=== PATIENT | female | born 1995 | race African-American/Black ===

== ENCOUNTER 2018-11-24 14:30 | Emergency (ER) | payer OTHER ==
[2018-11-24 14:34] VITALS: RESP 16
[2018-11-24] MEDS ORDERED: ONDANSETRON 4 MG/2 ML VIAL IVP STA (14:46)
[2018-11-24] MEDS ORDERED: SODIUM CHLORIDE 0.9% 2,000 ML IV STA (14:46)
[2018-11-24] MEDS ORDERED: MORPHINE SULFATE 2 MG/ML SYRINGE IVP STA (14:46)
[2018-11-24] MEDS ORDERED: ACETAMINOPHEN IV (For NPO) 1,000 MG in EMPTY BAG 1 BAG IVPB ONE (15:00)
--- NOTE | 2018-11-24 15:01 | ED ---
Abdominal Pain HPI - General Chief Complaint: Abdominal Pain Stated Complaint: abd pain Time Seen by Provider: 11/24/18 14:31 Source: patient, RN notes reviewed Mode of arrival: EMS Limitations: no limitations - History of Present Illness Initial Comments: 23-year-old female presents emergency Department with chief complaint of abdominal pain, fever, nausea vomiting. Patient states started yesterday and have worsened today. Patient does also have right flank pain. She has no current dysuria or urinary frequency. She states that she did notice some slight hematuria. Patient denies any history kidney stones. Denies chest pain or shortness breath no URI symptoms. Patient had no diarrhea no constipation. Denies any chance . - Related Data Home Medications Medication Instructions Recorded Confirmed Acetaminophen Tab [Tylenol] 1,000 mg PO BID 11/24/18 11/24/18 Previous Rx's Medication Instructions Recorded Ciprofloxacin HCl [Cipro] 500 mg PO Q12HR #20 tablet 11/24/18 Ondansetron Odt [Zofran Odt] 4 mg PO Q8HR PRN #10 tab 11/24/18 Allergies Allergy/AdvReac Type Severity Reaction Status Date / Time No Known Allergies Allergy Verified 11/24/18 14:52 Review of Systems ROS Statement: Those systems with pertinent positive or pertinent negative responses have been documented in the HPI. ROS Other: All systems not noted in ROS Statement are negative. Past Medical History Past Medical History: No Reported History History of Any Multi-Drug Resistant Organisms: None Reported Past Surgical History: No Surgical Hx Reported Past Psychological History: No Psychological Hx Reported Smoking Status: Current every day smoker Past Alcohol Use History: None Reported Past Drug Use History: Marijuana General Exam Limitations: no limitations General appearance: alert, in no apparent distress Head exam: Present: atraumatic, normocephalic, normal inspection Eye exam: Present: normal appearance, PERRL, EOMI. Absent: scleral icterus, conjunctival injection, periorbital swelling Respiratory exam: Present: normal lung sounds bilaterally. Absent: respiratory distress, wheezes, rales, rhonchi, stridor Cardiovascular Exam: Present: regular rate, normal rhythm, normal heart sounds. Absent: systolic murmur, diastolic murmur, rubs, gallop, clicks GI/Abdominal exam: Present: soft, tenderness (Moderate right-sided right flank) , normal bowel sounds. Absent: distended, guarding, rebound, rigid Back exam: Present: CVA tenderness (R). Absent: CVA tenderness (L) Skin exam: Present: warm, dry, intact, normal color. Absent: rash Course Vital Signs 11/24/18 14:31 Temperature 101.8 F H Pulse Rate 100 Respiratory 16 Rate Blood Pressure 117/71 O2 Sat by Pulse 100 Oximetry Medical Decision Making - Medical Decision Making 23-year-old female presents emergency Department chief complaint right flank pain, right abdominal pain. Patient did have social nausea vomiting. CT, lab work are obtained. Patient's found to have pyelonephritis. Patient is tolerating oral intake at this time. Patient will be given Rocephin IV and discharged on antibiotics. Return parameters were discussed. - Lab Data Result diagrams: 11/24/18 14:56 11/24/18 14:56 Lab Results 11/24/18 11/24/18 11/24/18 Range/Units 14:56 14:56 14:56 WBC 12.2 H (3.8-10.6) k/uL RBC 4.28 (3.80-5.40) m/uL Hgb 11.4 (11.4-16.0) gm/dL Hct 37.0 (34.0-46.0) % MCV 86.5 (80.0-100.0) fL MCH 26.6 (25.0-35.0) pg MCHC 30.7 L (31.0-37.0) g/dL RDW 14.2 (11.5-15.5) % Plt Count 149 L (150-450) k/uL Neutrophils % 88 % Lymphocytes % 6 % Monocytes % 4 % Eosinophils % 0 % Basophils % 0 % Neutrophils # 10.8 H (1.3-7.7) k/uL Lymphocytes # 0.7 L (1.0-4.8) k/uL Monocytes # 0.5 (0-1.0) k/uL Eosinophils # 0.1 (0-0.7) k/uL Basophils # 0.0 (0-0.2) k/uL Sodium 135 L (137-145) mmol/L Potassium 3.9 (3.5-5.1) mmol/L Chloride 104 (98-107) mmol/L Carbon Dioxide 20 L (22-30) mmol/L Anion Gap 11 mmol/L BUN 7 (7-17) mg/dL Creatinine 0.72 (0.52-1.04) mg/dL Est GFR (CKD-EPI)AfAm >90 (>60 ml/min/1.73 sqM) Est GFR (CKD-EPI)NonAf >90 (>60 ml/min/1.73 sqM) Glucose 100 H (74-99) mg/dL Plasma Lactic Acid Rommel 1.0 (0.7-2.0) mmol/L Calcium 8.7 (8.4-10.2) mg/dL Total Bilirubin 1.6 H (0.2-1.3) mg/dL AST 15 (14-36) U/L ALT 20 (9-52) U/L Alkaline Phosphatase 62 (38-126) U/L Total Protein 6.6 (6.3-8.2) g/dL Albumin 3.7 (3.5-5.0) g/dL Amylase 47 (30-110) U/L Lipase 28 (23-300) U/L Urine Color Urine Appearance (Clear) Urine pH (5.0-8.0) Ur Specific [place] (1.001-1.035) Urine Protein (Negative) Urine Glucose (UA) (Negative) Urine Ketones (Negative) Urine Blood (Negative) Urine Nitrite (Negative) Urine Bilirubin (Negative) Urine Urobilinogen (<2.0) mg/dL Ur Leukocyte Esterase (Negative) Urine RBC (0-5) /hpf Urine WBC (0-5) /hpf Ur Squamous Epith Cells (0-4) /hpf Urine Mucus (None) /hpf Urine HCG, Qual (Not Detectd) 11/24/18 11/24/18 Range/Units 14:56 14:56 WBC (3.8-10.6) k/uL RBC (3.80-5.40) m/uL Hgb (11.4-16.0) gm/dL Hct (34.0-46.0) % MCV (80.0-100.0) fL MCH (25.0-35.0) pg MCHC (31.0-37.0) g/dL RDW (11.5-15.5) % Plt Count (150-450) k/uL Neutrophils % % Lymphocytes % % Monocytes % % Eosinophils % % Basophils % % Neutrophils # (1.3-7.7) k/uL Lymphocytes # (1.0-4.8) k/uL Monocytes # (0-1.0) k/uL Eosinophils # (0-0.7) k/uL Basophils # (0-0.2) k/uL Sodium (137-145) mmol/L Potassium (3.5-5.1) mmol/L Chloride (98-107) mmol/L Carbon Dioxide (22-30) mmol/L Anion Gap mmol/L BUN (7-17) mg/dL Creatinine (0.52-1.04) mg/dL Est GFR (CKD-EPI)AfAm (>60 ml/min/1.73 sqM) Est GFR (CKD-EPI)NonAf (>60 ml/min/1.73 sqM) Glucose (74-99) mg/dL Plasma Lactic Acid Rommel (0.7-2.0) mmol/L Calcium (8.4-10.2) mg/dL Total Bilirubin (0.2-1.3) mg/dL AST (14-36) U/L ALT (9-52) U/L Alkaline Phosphatase (38-126) U/L Total Protein (6.3-8.2) g/dL Albumin (3.5-5.0) g/dL Amylase (30-110) U/L Lipase (23-300) U/L Urine Color Yellow Urine Appearance Cloudy H (Clear) Urine pH 6.0 (5.0-8.0) Ur Specific [place] 1.012 (1.001-1.035) Urine Protein 1+ H (Negative) Urine Glucose (UA) Negative (Negative) Urine Ketones 4+ H (Negative) Urine Blood Moderate H (Negative) Urine Nitrite Negative (Negative) Urine Bilirubin Negative (Negative) Urine Urobilinogen <2.0 (<2.0) mg/dL Ur Leukocyte Esterase Large H (Negative) Urine RBC 48 H (0-5) /hpf Urine WBC 69 H (0-5) /hpf Ur Squamous Epith Cells 6 H (0-4) /hpf Urine Mucus Few H (None) /hpf Urine HCG, Qual Detected (Not Detectd) Disposition Clinical Impression: Pyelonephritis Disposition: HOME SELF-CARE Condition: Stable Instructions: Kidney Infection (ED) Additional Instructions: Please return to the Emergency Department if symptoms worsen or any other concerns. Prescriptions: Ciprofloxacin HCl [Cipro] 500 mg PO Q12HR #20 tablet Ondansetron Odt [Zofran Odt] 4 mg PO Q8HR PRN #10 tab PRN Reason: Nausea Is patient prescribed a controlled substance at d/c from ED?: No Referrals: None,Stated [Primary Care Provider] - 1-2 days Time of Disposition: 16:16
[2018-11-24 15:28] LABS: ALT 20 U/L (9-52); AST 15 U/L (14-36); Albumin 3.7 g/dL (3.5-5.0); Alkaline Phosphatase 62 U/L (38-126); Amylase 47 U/L (30-110); Anion Gap 11 mmol/L; Blood Urea Nitrogen 7 mg/dL (7-17); Calcium 8.7 mg/dL (8.4-10.2); Carbon Dioxide 20 mmol/L (22-30); Chloride 104 mmol/L (98-107); Glucose 100 mg/dL (74-99); Lipase 28 U/L (23-300); Potassium 3.9 mmol/L (3.5-5.1); Sodium 135 mmol/L (137-145); Total Bilirubin 1.6 mg/dL (0.2-1.3); Total Protein 6.6 g/dL (6.3-8.2)
[2018-11-24 15:38] LABS: Appearance,Urine Cloudy (Clear); Bilirubin,Urine Negative (Negative); Blood,Urine Moderate (Negative); Color,Urine Yellow; Glucose,Urine (UA) Negative (Negative); Ketones,Urine 4+ (Negative); Leukocyte Esterase,Urine Large (Negative); Mucus,Urine Few /hpf; Nitrite,Urine Negative (Negative); Protein,Urine 1+ (Negative); RBC,Urine 48 /hpf (0-5); Specific Gravity,Urine 1.012 (1.001-1.035); Squamous Epithelial Cell,Urine 6 /hpf (0-4); Urobilinogen,Urine <2.0 mg/dL (<2.0); WBC,Urine 69 /hpf (0-5)
[2018-11-24 15:39] LABS: Basophils % (A) 0 %; Eosinophils # (A) 0.1 k/uL (0-0.7); Eosinophils % (A) 0 %; HGB 11.4 gm/dL (11.4-16.0); Lymphocytes # (A) 0.7 k/uL (1.0-4.8); Lymphocytes % (A) 6 %; MCH 26.6 pg (25.0-35.0); MCHC 30.7 g/dL (31.0-37.0); MCV 86.5 fL (80.0-100.0); Mean Platelet Volume 7.8; Monocytes # (A) 0.5 k/uL (0-1.0); Monocytes % (A) 4 %; Neutrophils # (A) 10.8 k/uL (1.3-7.7); Neutrophils % (A) 88 %; Platelet Count 149 k/uL (150-450); RBC 4.28 m/uL (3.80-5.40); RDW 14.2 % (11.5-15.5); WBC 12.2 k/uL (3.8-10.6)
--- NOTE | 2018-11-24 16:06 | CT ---
EXAMINATION TYPE: CT abdomen pelvis w con DATE OF EXAM: 11/24/2018 COMPARISON: NONE HISTORY: 23-year-old female Right lower abdomen and back pain x few days. TECHNIQUE: Contiguous axial scanning of the abdomen and pelvis following administration of 100 ml Iso amelia 300 IV contrast. Delayed images through the kidneys and coronal/sagittal reconstructions perform ed. CT DLP: 458.8 mGycm Automated exposure control for dose reduction was used. FINDINGS: Heart normal size without pericardial effusion. Lung bases clear without pleural effusion. No focal liver lesion. Portal venous system is patent. No biliary ductal dilatation. Gallbladder, adrenal glands, left kidney, spleen, and pancreas appear within normal limits. There are striated nephrograms with patchy areas of hypoenhancement throughout the right kidney and m ild right-sided pelvocaliectasis. No dilated small bowel, free fluid, or free air. Normal caliber appendix is identified. Scattered mild stool wording. No pericolonic inflammatory change. No mesenteric or retroperitoneal lymphadenopathy. Very heterogeneous enhancement of the uterus with slightly irregular contour to the right side of the endometrium. There is a 2.0 cm dominant follicle or functional cyst on the right. Trace cul-de-sac f ree fluid likely physiologic. Some prominent stool within the rectum. No pelvic lymphadenopathy seen. Bones: No osseous destructive process. IMPRESSION: 1. CT FINDINGS OF RIGHT-SIDED PYELONEPHRITIS. 2. VERY HETEROGENEOUS ENHANCEMENT OF THE UTERUS AND SOME CONTOUR IRREGULARITY TO THE RIGHT SIDE OF TH E ENDOMETRIUM. FINDINGS ARE NONSPECIFIC AND MAY BE PHYSIOLOGIC. ADENOMYOSIS IS ALSO POSSIBLE. CORRELA TE FOR ANY CHRONIC SYMPTOMS IN THIS PATIENT.
[2018-11-24] MEDS ORDERED: cefTRIAXone 2,000 MG in SODIUM CHLORIDE 0.9% 100 ML IVPB STA (16:10)
[2018-11-24] MEDS ORDERED: MORPHINE SULFATE 2 MG/ML SYRINGE IVP ONE (16:14)
[2018-11-24] MEDS ORDERED: ACET/COD 300 MG/30 MG STARTER PACK 6 TAB BTL PO STA (16:16)
[2018-11-24 17:34] VITALS: BP 107/70; PULSE 104; TEMP 99
== END 2018-11-24 17:40 | disposition home or self-care (01) ==
LOC: EC 14:30
DX: N12 Tubulo-interstitial nephritis, not specified as acute or chronic (principal); F17.200 Nicotine dependence, unspecified, uncomplicated; Z79.891 Long term (current) use of opiate analgesic
CPT/HCPCS: 36415; 80053; 82150; 83605; 83690; 85025; 81001; 81025; 87040; 74177; 99285; 96365; 96367; 96375 ×2; 96376; 96361; J2405; J0696; J2270; J0131; Q9967; 87077; 87186

== ENCOUNTER 2018-11-26 17:16 | Emergency (ER) | payer OTHER ==
[2018-11-26 17:36] VITALS: TEMP 98.8
[2018-11-26 18:27] LABS: Appearance,Urine Cloudy (Clear); Bacteria,Urine Rare /hpf; Bilirubin,Urine Negative (Negative); Blood,Urine Trace (Negative); Color,Urine Yellow; Glucose,Urine (UA) Negative (Negative); Ketones,Urine 2+ (Negative); Leukocyte Esterase,Urine Large (Negative); Mucus,Urine Few /hpf; Nitrite,Urine Negative (Negative); PH, Urine 6.5 (5.0-8.0); Protein,Urine Trace (Negative); RBC,Urine 4 /hpf (0-5); Specific Gravity,Urine 1.012 (1.001-1.035); Squamous Epithelial Cell,Urine 17 /hpf (0-4); Urobilinogen,Urine <2.0 mg/dL (<2.0)
[2018-11-26] MEDS ORDERED: SODIUM CHLORIDE 0.9% 1,000 ML IV STA (19:30)
--- NOTE | 2018-11-26 19:32 | ED ---
General Adult HPI - General Chief complaint: Recheck/Abnormal Lab/Rx Stated complaint: back to have iv here on sat for kidney infection Time Seen by Provider: 11/26/18 19:13 Source: patient, RN notes reviewed Mode of arrival: ambulatory Limitations: no limitations - History of Present Illness Initial comments: Patient is a pleasant 23-year-old female presenting to the emergency department after being called by follow-up. Patient states she was in the emergency department 2 days ago and was called for concerns regarding what work. Patient states she was diagnosed with kidney infection. Patient had discomfort right CVA region. Patient states discomfort is improving is only mild at this time. Patient states she has some urinary frequency. No fevers. No dysuria. No abdominal pain. No history of chronic kidney problems or infections. - Related Data Home Medications Medication Instructions Recorded Confirmed Acetaminophen-Codeine 300-30mg 1 tab PO Q12HR 11/26/18 11/26/18 [Tylenol w/codeine #3] Previous Rx's Medication Instructions Recorded Ciprofloxacin HCl [Cipro] 500 mg PO Q12HR #20 tablet 11/24/18 Ondansetron Odt [Zofran Odt] 4 mg PO Q8HR PRN #10 tab 11/24/18 Allergies Allergy/AdvReac Type Severity Reaction Status Date / Time No Known Allergies Allergy Verified 11/26/18 20:12 Review of Systems ROS Statement: Those systems with pertinent positive or pertinent negative responses have been documented in the HPI. ROS Other: All systems not noted in ROS Statement are negative. Constitutional: Denies: fever, chills Eyes: Denies: eye pain ENT: Denies: ear pain Respiratory: Denies: cough, dyspnea Cardiovascular: Denies: chest pain Gastrointestinal: Reports: as per HPI. Denies: vomiting Genitourinary: Reports: frequency. Denies: dysuria Musculoskeletal: Denies: back pain Skin: Denies: rash Neurological: Denies: weakness Past Medical History Past Medical History: No Reported History Additional Past Medical History / Comment(s): Kidney infection History of Any Multi-Drug Resistant Organisms: None Reported Past Surgical History: No Surgical Hx Reported Past Psychological History: No Psychological Hx Reported Smoking Status: Current every day smoker Past Alcohol Use History: None Reported Past Drug Use History: Marijuana General Exam Limitations: no limitations General appearance: alert, in no apparent distress Head exam: Present: atraumatic Eye exam: Present: normal appearance, PERRL ENT exam: Present: normal oropharynx Neck exam: Present: normal inspection Respiratory exam: Present: normal lung sounds bilaterally Cardiovascular Exam: Present: regular rate, normal rhythm GI/Abdominal exam: Present: soft. Absent: distended, tenderness, guarding, pulsatile mass Extremities exam: Present: normal inspection. Absent: pedal edema, calf tenderness Back exam: Present: CVA tenderness (R) (Mild) Neurological exam: Present: alert Psychiatric exam: Present: normal affect, normal mood Skin exam: Present: normal color Course Vital Signs 11/26/18 17:31 Temperature 98.8 F Pulse Rate 111 H Respiratory 18 Rate Blood Pressure 102/69 O2 Sat by Pulse 99 Oximetry Medical Decision Making - Medical Decision Making Patient reevaluated and resting comfortably in bed. Concern for bacteremia with positive blood culture. Patient updated on results and plan. Case was discussed with practitioner Salvatore, covering for hospital call, who will admit for a dose of IV antibiotics and reevaluation in the morning. - Lab Data Result diagrams: 11/26/18 20:00 11/26/18 20:00 Lab Results 11/26/18 11/26/18 11/26/18 Range/Units 18:15 20:00 20:00 WBC 7.6 (3.8-10.6) k/uL RBC 4.56 (3.80-5.40) m/uL Hgb 12.3 (11.4-16.0) gm/dL Hct 38.4 (34.0-46.0) % MCV 84.2 (80.0-100.0) fL MCH 27.0 (25.0-35.0) pg MCHC 32.0 (31.0-37.0) g/dL RDW 14.3 (11.5-15.5) % Plt Count 143 L (150-450) k/uL Neutrophils % 66 % Lymphocytes % 21 % Monocytes % 8 % Eosinophils % 1 % Basophils % 1 % Neutrophils # 5.0 (1.3-7.7) k/uL Lymphocytes # 1.6 (1.0-4.8) k/uL Monocytes # 0.6 (0-1.0) k/uL Eosinophils # 0.1 (0-0.7) k/uL Basophils # 0.0 (0-0.2) k/uL Sodium 136 L (137-145) mmol/L Potassium 3.9 (3.5-5.1) mmol/L Chloride 100 (98-107) mmol/L Carbon Dioxide 23 (22-30) mmol/L Anion Gap 13 mmol/L BUN 7 (7-17) mg/dL Creatinine 0.63 (0.52-1.04) mg/dL Est GFR (CKD-EPI)AfAm >90 (>60 ml/min/1.73 sqM) Est GFR (CKD-EPI)NonAf >90 (>60 ml/min/1.73 sqM) Glucose 76 (74-99) mg/dL Plasma Lactic Acid Rommel (0.7-2.0) mmol/L Calcium 9.3 (8.4-10.2) mg/dL Total Bilirubin 0.5 (0.2-1.3) mg/dL AST 24 (14-36) U/L ALT 20 (9-52) U/L Alkaline Phosphatase 81 (38-126) U/L Total Protein 7.2 (6.3-8.2) g/dL Albumin 4.1 (3.5-5.0) g/dL Urine Color Yellow Urine Appearance Cloudy H (Clear) Urine pH 6.5 (5.0-8.0) Ur Specific [place] 1.012 (1.001-1.035) Urine Protein Trace H (Negative) Urine Glucose (UA) Negative (Negative) Urine Ketones 2+ H (Negative) Urine Blood Trace H (Negative) Urine Nitrite Negative (Negative) Urine Bilirubin Negative (Negative) Urine Urobilinogen <2.0 (<2.0) mg/dL Ur Leukocyte Esterase Large H (Negative) Urine RBC 4 (0-5) /hpf Urine WBC 23 H (0-5) /hpf Ur Squamous Epith Cells 17 H (0-4) /hpf Urine Bacteria Rare H (None) /hpf Urine Mucus Few H (None) /hpf 11/26/18 Range/Units 20:00 WBC (3.8-10.6) k/uL RBC (3.80-5.40) m/uL Hgb (11.4-16.0) gm/dL Hct (34.0-46.0) % MCV (80.0-100.0) fL MCH (25.0-35.0) pg MCHC (31.0-37.0) g/dL RDW (11.5-15.5) % Plt Count (150-450) k/uL Neutrophils % % Lymphocytes % % Monocytes % % Eosinophils % % Basophils % % Neutrophils # (1.3-7.7) k/uL Lymphocytes # (1.0-4.8) k/uL Monocytes # (0-1.0) k/uL Eosinophils # (0-0.7) k/uL Basophils # (0-0.2) k/uL Sodium (137-145) mmol/L Potassium (3.5-5.1) mmol/L Chloride (98-107) mmol/L Carbon Dioxide (22-30) mmol/L Anion Gap mmol/L BUN (7-17) mg/dL Creatinine (0.52-1.04) mg/dL Est GFR (CKD-EPI)AfAm (>60 ml/min/1.73 sqM) Est GFR (CKD-EPI)NonAf (>60 ml/min/1.73 sqM) Glucose (74-99) mg/dL Plasma Lactic Acid Rommel 0.8 (0.7-2.0) mmol/L Calcium (8.4-10.2) mg/dL Total Bilirubin (0.2-1.3) mg/dL AST (14-36) U/L ALT (9-52) U/L Alkaline Phosphatase (38-126) U/L Total Protein (6.3-8.2) g/dL Albumin (3.5-5.0) g/dL Urine Color Urine Appearance (Clear) Urine pH (5.0-8.0) Ur Specific [place] (1.001-1.035) Urine Protein (Negative) Urine Glucose (UA) (Negative) Urine Ketones (Negative) Urine Blood (Negative) Urine Nitrite (Negative) Urine Bilirubin (Negative) Urine Urobilinogen (<2.0) mg/dL Ur Leukocyte Esterase (Negative) Urine RBC (0-5) /hpf Urine WBC (0-5) /hpf Ur Squamous Epith Cells (0-4) /hpf Urine Bacteria (None) /hpf Urine Mucus (None) /hpf - Radiology Data Radiology results: image reviewed (Abdominal x-ray shows no acute process) Disposition Clinical Impression: Pyelonephritis, Bacteremia Disposition: ADMITTED IP TO THIS [facility] Condition: Serious Is patient prescribed a controlled substance at d/c from ED?: No Referrals: None,Stated [Primary Care Provider] - 1-2 days Decision Time: 21:03
[2018-11-26 20:21] LABS: Basophils % (A) 1 %; Eosinophils # (A) 0.1 k/uL (0-0.7); Eosinophils % (A) 1 %; HCT 38.4 % (34.0-46.0); HGB 12.3 gm/dL (11.4-16.0); Lymphocytes # (A) 1.6 k/uL (1.0-4.8); Lymphocytes % (A) 21 %; MCV 84.2 fL (80.0-100.0); Mean Platelet Volume 7.9; Monocytes # (A) 0.6 k/uL (0-1.0); Monocytes % (A) 8 %; Neutrophils % (A) 66 %; Platelet Count 143 k/uL (150-450); RBC 4.56 m/uL (3.80-5.40); RDW 14.3 % (11.5-15.5); WBC 7.6 k/uL (3.8-10.6)
[2018-11-26 20:32] LABS: ALT 20 U/L (9-52); AST 24 U/L (14-36); Albumin 4.1 g/dL (3.5-5.0); Alkaline Phosphatase 81 U/L (38-126); Anion Gap 13 mmol/L; Blood Urea Nitrogen 7 mg/dL (7-17); Calcium 9.3 mg/dL (8.4-10.2); Carbon Dioxide 23 mmol/L (22-30); Chloride 100 mmol/L (98-107); Glucose 76 mg/dL (74-99); Potassium 3.9 mmol/L (3.5-5.1); Sodium 136 mmol/L (137-145); Total Bilirubin 0.5 mg/dL (0.2-1.3); Total Protein 7.2 g/dL (6.3-8.2)
--- NOTE | 2018-11-26 20:41 | XR ---
EXAMINATION TYPE: XR KUB DATE OF EXAM: 11/26/2018 8:04 PM CLINICAL HISTORY: Abdominal pain. Kidney infection diagnosed 3 days ago. TECHNIQUE: Two Upright KUB images of the abdomen are obtained. COMPARISON: CT abdomen and pelvis from 2 days earlier. FINDINGS: Scattered gas is seen in non-distended stomach and small bowel loops. Gas and fecal materia l is seen in non-distended colon. There is no visceromegaly, pneumoperitoneum, or abnormal calcificat ion appreciated. The lung bases are clear and the osseous structures are intact. IMPRESSION: Overall nonobstructive bowel gas pattern redemonstrated.
[2018-11-26] MEDS ORDERED: NALOXONE 0.4 MG/ML 1 ML VIAL IV PRN (21:03)
[2018-11-26] MEDS ORDERED: SODIUM CHLORIDE 0.9% 1,000 ML IV SCH (21:15)
[2018-11-27 01:07] VITALS: BP 99/60; PULSE 84; RESP 16
== END 2018-11-27 01:38 | disposition other institution (70) ==
LOC: EC 17:16
DX: N12 Tubulo-interstitial nephritis, not specified as acute or chronic (principal); F17.200 Nicotine dependence, unspecified, uncomplicated; Z79.891 Long term (current) use of opiate analgesic; Z79.899 Other long term (current) drug therapy
CPT/HCPCS: 36415; 80053; 83605; 85025; 81001; 87040; 87086; 74018; 99284; 96365; 96361 ×2; J0696

== ENCOUNTER 2020-07-13 05:01 | Inpatient (IN) | payer OTHER ==
[2020-07-13] MEDS: LACTATED RINGERS 1,000 ML IV SCH ×2 (05:30→06:16)
[2020-07-13] MEDS ORDERED: OXYTOCIN 10 UNIT/ML 1 ML VIAL IM PRN (05:52)
[2020-07-13] MEDS ORDERED: TERBUTALINE 1 MG/ML VIAL SQ PRN (05:52)
[2020-07-13] MEDS ORDERED: LIDOCAINE 0.5% (PF) 5 MG/ML (50 ML SDV) SQ PRN (05:52)
[2020-07-13] MEDS ORDERED: CARBOPROST TROMETHAMINE 250 MCG/ML 1 ML AMP IM PRN (05:52)
[2020-07-13] MEDS ORDERED: METHYLERGONOVINE 0.2 MG/ML 1 ML AMP IM PRN (05:52)
[2020-07-13 06:09] LABS: Basophils % (A) 0 %; Eosinophils # (A) 0.1 k/uL (0-0.7); Eosinophils % (A) 2 %; HCT 33.8 % (34.0-46.0); HGB 10.5 gm/dL (11.4-16.0); Hypochromasia Slight; Lymphocytes % (A) 25 %; MCH 26.6 pg (25.0-35.0); MCHC 31.2 g/dL (31.0-37.0); MCV 85.3 fL (80.0-100.0); Mean Platelet Volume 8.3; Monocytes # (A) 0.5 k/uL (0-1.0); Monocytes % (A) 6 %; Neutrophils # (A) 5.2 k/uL (1.3-7.7); Neutrophils % (A) 64 %; Platelet Count 187 k/uL (150-450); RBC 3.96 m/uL (3.80-5.40); RDW 15.5 % (11.5-15.5); WBC 8.1 k/uL (3.8-10.6)
[2020-07-13] MEDS ORDERED: ROPIVACAINE 5MG/ML 20ML VIAL ONE (06:30)
[2020-07-13] MEDS ORDERED: fentaNYL (PF) 50 MCG/ML 5 ML AMP ONE (06:30)
[2020-07-13] MEDS ORDERED: SODIUM CHLORIDE 0.9% 100 ML BAG ONE (06:30)
[2020-07-13] MEDS ORDERED: AMPICILLIN 2,000 MG in SODIUM CHLORIDE 0.9% 100 ML IVPB STA (07:14)
--- NOTE | 2020-07-13 07:38 | P.HPOB ---
History of Present Illness H&P Date: 07/13/20 Chief Complaint: Labor 24-year-old presents at 30 weeks and 5 days in active labor. She is mariela every 2 minutes. heart tones 135 with moderate variability and reactive. Cervix is 5 cm dilated, 70% effaced, -2 station. She had care with Dr. Gomez [facility] but was brought here by EMS. Review of Systems All systems: negative Constitutional: Denies chills, Denies fever Eyes: denies blurred vision, denies pain Ears, nose, mouth and throat: Denies headache, Denies sore throat Cardiovascular: Denies chest pain, Denies shortness of breath Respiratory: Denies cough Gastrointestinal: Denies abdominal pain, Denies diarrhea, Denies nausea, Denies vomiting Genitourinary: Denies dysuria, Denies hematuria Musculoskeletal: Denies myalgias Integumentary: Denies pruritus, Denies rash Neurological: Denies numbness, Denies weakness Psychiatric: Denies anxiety, Denies depression Endocrine: Denies fatigue, Denies weight change Past Medical History Past Medical History: No Reported History Additional Past Medical History / Comment(s): Obstetric history: She has had 2 previous vaginal deliveries. This is her third . She had care with Dr. Gomez. I did attempt to get records but there is not much in way of labs or history and this record obtained from [facility]. She does have a history of a Kidney infection with this , treated with IV antibiotics. History of Any Multi-Drug Resistant Organisms: None Reported Past Surgical History: No Surgical Hx Reported Past Anesthesia/Blood Transfusion Reactions: No Reported Reaction Past Psychological History: No Psychological Hx Reported Smoking Status: Never smoker Past Alcohol Use History: None Reported Past Drug Use History: Marijuana - Past Family History Mother Family Medical History: Hypertension Father Family Medical History: Diabetes Mellitus, Hypertension Medications and Allergies Home Medications Medication Instructions Recorded Confirmed Type Pnv,Calcium 72/Iron/Folic Acid 1 tab PO DAILY 07/13/20 07/13/20 History [ Plus Tablet] Allergies Allergy/AdvReac Type Severity Reaction Status Date / Time No Known Allergies Allergy Verified 07/13/20 05:52 Exam Osteopathic Statement: *. No significant issues noted on an osteopathic structural exam other than those noted in the History and Physical/Consult. Vital Signs Temp Pulse Resp BP Pulse Ox 07/13/20 06:22 98.1 F 68 18 106/63 07/13/20 05:10 98.0 F 72 16 106/63 98 Intake and Output 07/12/20 07/13/20 07/13/20 22:59 06:59 14:59 Intake Total 1000 Balance 1000 Intake: IV 1000 Other: # Voids 1 Weight 59.874 kg Heart: Regular rate and rhythm Lungs: Clear to auscultation bilaterally Abdomen: Soft, nontender Extremities: Negative Homans sign Results Result Diagrams: 07/13/20 05:50 Abnormal Lab Results - Last 24 Hours (Table) 07/13/20 Range/Units 05:50 Hgb 10.5 L (11.4-16.0) gm/dL Hct 33.8 L (34.0-46.0) % Assessment and Plan (1) Normal labor Current Visit: Yes Status: Acute Code(s): O80 - ENCOUNTER FOR FULL-TERM UNCOMPLICATED DELIVERY; Z37.9 - OUTCOME OF DELIVERY, UNSPECIFIED SNOMED Code(s): 61814561 Plan: 1. Expectant management 2. Epidural for pain control 3. Anticipate normal vaginal delivery
[2020-07-13 07:45] LABS: Appearance,Urine Cloudy (Clear); Bacteria,Urine Rare /hpf; Bilirubin,Urine Negative (Negative); Blood,Urine Negative (Negative); Color,Urine Yellow; Glucose,Urine (UA) Negative (Negative); Ketones,Urine 1+ (Negative); Leukocyte Esterase,Urine Moderate (Negative); Mucus,Urine Many /hpf; Nitrite,Urine Negative (Negative); PH, Urine 6.5 (5.0-8.0); Protein,Urine Trace (Negative); RBC,Urine 3 /hpf (0-5); Specific Gravity,Urine 1.024 (1.001-1.035); Squamous Epithelial Cell,Urine 5 /hpf (0-4); WBC,Urine 13 /hpf (0-5)
[2020-07-13 07:56] LABS: Amphetamine Screen,Urine Not Detected (NotDetected); Barbiturate Screen,Urine Not Detected (NotDetected); Benzodiazepines Screen,Urine Not Detected (NotDetected); Cocaine Screen,Urine Not Detected (NotDetected); Methadone Screen, Urine Not Detected (NotDetected); Opiate Screen,Urine Not Detected (NotDetected); Oxycodone Screen, Urine Not Detected (NotDetected); Phencyclidine Screen,Urine Not Detected (NotDetected); Tricyclic Antidepressant,Urine Not Detected (NotDetected); Urn Cannabinoid Scrn Detected (NotDetected)
[2020-07-13] MEDS ORDERED: OXYTOCIN 30 UNITS/500 ML NS 30 UNIT in SALINE 1 500ML.BAG IV SCH (08:00)
[2020-07-13] MEDS ORDERED: LANOLIN CREAM 5 GM TUBE TOPICAL PRN (11:22)
[2020-07-13] MEDS ORDERED: diphenhydrAMINE 25 MG CAP PO PRN (11:22)
[2020-07-13] MEDS ORDERED: SIMETHICONE 80 MG CHEWABLE PO PRN (11:22)
[2020-07-13] MEDS ORDERED: HYDROCORTISONE 2.5% RECTAL CREAM 30 GM TUBE RECTAL PRN (11:22)
[2020-07-13] MEDS ORDERED: ZOLPIDEM 5 MG TAB PO PRN (11:22)
[2020-07-13] MEDS ORDERED: diphenhydrAMINE 50 MG/ML 1 ML VIAL IVP PRN ×2 (11:22)
[2020-07-13] MEDS ORDERED: diphenhydrAMINE 50 MG CAP PO PRN (11:22)
[2020-07-13] MEDS ORDERED: ACETAMINOPHEN TAB 325 MG TAB PO PRN (11:22)
[2020-07-13] MEDS ORDERED: BENZOCAINE/MENTHOL SPRAY 1 GM/SPRAY AEROSOL TOPICAL PRN (11:22)
[2020-07-13] MEDS ORDERED: AMPICILLIN 1,000 MG in SODIUM CHLORIDE 0.9% 50 ML IVPB SCH (11:30)
[2020-07-13] MEDS ORDERED: OXYTOCIN 20 UNITS/1000 ML NS 1,000 ML IV SCH (11:30)
[2020-07-13] MEDS: IBUPROFEN 600 MG TAB PO PRN ×2 (16:18→23:32)
--- NOTE | 2020-07-13 18:24 | P.PROBDLV ---
Vaginal Delivery Note - . Vaginal Delivery Note: Normal spontaneous vaginal delivery viable male infant Apgars 9 and 9 delivery time is 1028 hrs. Please see dictated H&P for intimate details of this patient's admission. Brief summary this is a 24-year-old 3 para 2 female estimated gestational age 38-5/7 weeks by limited care who presented by EMS this morning with complaints of contractions. Patient was admitted and evaluated by Dr. Bullock and felt to be in active labor. Patient apparently is only had [address] Gomez and we do not have access to these records. On admission patient is 5 cm dilated and is given antibiotic prophylaxis for unknown group B strep status. She has artificial rupture membranes for clear fluid area and she does require some Pitocin augmentation of labor. Patient did get an epidural for pain control with good relief. Patient gets to complete she pushes approximately 2 or 3 times and pushes the head to the perineum. Posterior perineum is supported we have controlled delivery of the 's head over the intact perineum. Infant is straight occiput anterior presentation. Patient does have a nuchal cord and has I'm trying to reduce that she's pushes then spontaneously delivers a rest this infant's body. This is a vigorous viable male infant Apgars are 9 and 9 delivery time was 1028 hrs. After delivery of the infant the infant is late on the mother's abdomen. After the umbilical cord is done pulsating is doubly clamped and cut. The placenta is spontaneously delivered intact. Estimated blood loss from delivery is 100 mL. There are no lacerations and no repairs required. and mother are stable in delivery room. There are no complications.
[2020-07-13 19:21] LABS: Hepatitis B Surface Antigen Non-Reactive (Non-Reactive)
[2020-07-13] MEDS: SENNOSIDES-DOCUSATE SODIUM 1 EACH TAB PO SCH (19:48)
[2020-07-13 20:03] LABS: HIV 2 AB Non-Reactive (Non-Reactive); HIV AB P24 Non-Reactive (Non-Reactive); HIV P24 AG Non-Reactive (Non-Reactive)
[2020-07-14] MEDS: IBUPROFEN 600 MG TAB PO PRN ×2 (05:17→19:14)
[2020-07-14 06:11] LABS: Basophils % (A) 0 %; Eosinophils # (A) 0.1 k/uL (0-0.7); Eosinophils % (A) 1 %; HCT 29.9 % (34.0-46.0); HGB 9.2 gm/dL (11.4-16.0); Hypochromasia Slight; Lymphocytes # (A) 2.4 k/uL (1.0-4.8); Lymphocytes % (A) 30 %; MCH 26.4 pg (25.0-35.0); MCHC 30.8 g/dL (31.0-37.0); MCV 85.9 fL (80.0-100.0); Mean Platelet Volume 9.3; Monocytes # (A) 0.4 k/uL (0-1.0); Monocytes % (A) 5 %; Neutrophils # (A) 4.9 k/uL (1.3-7.7); Neutrophils % (A) 61 %; Platelet Count 153 k/uL (150-450); RBC 3.48 m/uL (3.80-5.40); RDW 15.6 % (11.5-15.5)
--- NOTE | 2020-07-14 06:31 | P.PNOBGVD ---
Subjective - Subjective Patient reports: Reports appetite normal, Reports voiding normally, Reports pain well controlled, Reports ambulating normally : doing well Objective - Latest Vital Signs Latest vital signs: Vital Signs Temp Pulse Resp BP Pulse Ox 07/14/20 00:00 98.0 F 70 16 101/65 07/13/20 20:00 97.8 F 68 16 101/56 07/13/20 16:00 98.4 F 77 18 100/62 98 07/13/20 12:36 98.2 F 67 17 100/70 07/13/20 12:05 63 18 106/53 07/13/20 11:35 98.2 F 64 17 102/67 07/13/20 11:20 71 17 108/72 07/13/20 11:05 78 17 104/57 07/13/20 10:49 84 17 107/59 07/13/20 10:34 97.3 F L 82 18 103/53 Intake and Output 07/13/20 07/13/20 07/14/20 14:59 22:59 06:59 Intake Total 2000 120 Output Total 150 Balance 1850 120 Intake: IV 2000 Oral 120 Output: Urine 150 Straight 150 Other: Voiding Method Toilet # Voids 1 1 2 - Exam Lungs: bilateral: normal Chest: Normal S1, Normal S2 Extremities: Present: normal Abdomen: Present: normal appearance, soft Uterus: Present: normal, firm - Labs Labs: Abnormal Lab Results - Last 24 Hours (Table) 07/13/20 07/13/20 07/14/20 Range/Units 06:30 07:45 05:51 RBC 3.48 L (3.80-5.40) m/uL Hgb 9.2 L (11.4-16.0) gm/dL Hct 29.9 L (34.0-46.0) % MCHC 30.8 L (31.0-37.0) g/dL RDW 15.6 H (11.5-15.5) % Glucose 65 L (74-99) mg/dL Urine Appearance Cloudy H (Clear) Urine Protein Trace H (Negative) Urine Ketones 1+ H (Negative) Ur Leukocyte Esterase Moderate H (Negative) Urine WBC 13 H (0-5) /hpf Ur Squamous Epith Cells 5 H (0-4) /hpf Urine Bacteria Rare H (None) /hpf Urine Mucus Many H (None) /hpf U Marijuana (THC) Screen Detected H (NotDetected) Assessment and Plan Assessment: day #1. Patient is resting without complaints. Vital signs are stable she is afebrile. She is having normal lochia. Secondary to unknown group B strep status her son needs to stay for 48 hours therefore patient plans on staying until tomorrow. Plan today is routine care. (1) Normal labor Current Visit: Yes Status: Acute Code(s): O80 - ENCOUNTER FOR FULL-TERM UNCOMPLICATED DELIVERY; Z37.9 - OUTCOME OF DELIVERY, UNSPECIFIED SNOMED Code(s): 28085979
[2020-07-14] MEDS ORDERED: diphenhydrAMINE 25 MG CAP PO PRN (08:36)
[2020-07-14] MEDS ORDERED: diphenhydrAMINE 50 MG/ML 1 ML VIAL IVP PRN ×2 (08:36)
[2020-07-14] MEDS: SENNOSIDES-DOCUSATE SODIUM 1 EACH TAB PO SCH ×2 (11:16→19:14)
[2020-07-14 23:59] VITALS: BP 112/66
--- NOTE | 2020-07-15 06:16 | P.PNOBGVD ---
Subjective - Subjective Patient reports: Reports appetite normal, Reports voiding normally, Reports pain well controlled, Reports ambulating normally : doing well Objective - Latest Vital Signs Latest vital signs: Vital Signs Temp Pulse Resp BP Pulse Ox 07/14/20 23:58 97.8 F 64 16 112/66 07/14/20 16:00 98.9 F 75 15 101/50 98 07/14/20 08:00 98 F 68 15 110/72 Intake and Output 07/14/20 07/14/20 07/15/20 14:59 22:59 06:59 Intake Total 200 Balance 200 Intake: Oral 200 - Exam Lungs: bilateral: normal Chest: Normal S1, Normal S2 Extremities: Present: normal Abdomen: Present: normal appearance, soft Uterus: Present: normal, firm Assessment and Plan Assessment: day #2. Patient is resting without complaints. Vital signs are stable and she is afebrile. Uterus is firm nontender she's having normal lochia. My impression is a normal course. Plan is to continue routine care and discharge home later this morning (1) Normal labor Current Visit: Yes Status: Acute Code(s): O80 - ENCOUNTER FOR FULL-TERM UNCOMPLICATED DELIVERY; Z37.9 - OUTCOME OF DELIVERY, UNSPECIFIED SNOMED Code(s): 53462385
--- NOTE | 2020-07-15 06:20 | P.DS ---
Providers Date of admission: 07/13/20 05:21 Expected date of discharge: 07/15/20 Attending physician: Jessica Bullock Primary care physician: Stated None - Discharge Diagnosis(es) (1) Normal labor Current Visit: Yes Status: Acute Hospital Course: Please see dictated H&P for intimate details of this patient's admission. Brief summary this is a 24-year-old 3 para [address] Gomez's admitted to labor and delivery by EMS in active labor. Patient was on have a vaginal delivery viable male . Please see dictated delivery note. day #2 patient's felt be stable for discharge home follow up with Dr. Gomez in 6 weeks. Procedures: Normal spontaneous vaginal delivery Patient Condition at Discharge: Good Plan - Discharge Summary New Discharge Prescriptions: New Ibuprofen [Motrin] 600 mg PO Q6HR PRN #30 tab PRN Reason: Mild Pain Or Fever >= 100.5 No Action Pnv,Calcium 72/Iron/Folic Acid [ Plus Tablet] 1 tab PO DAILY Discharge Medication List Pnv,Calcium 72/Iron/Folic Acid [ Plus Tablet] 1 tab PO DAILY 07/13/20 [History] Ibuprofen [Motrin] 600 mg PO Q6HR PRN #30 tab 07/15/20 [Rx] Follow up Appointment(s)/Referral(s): Handy Gomez DO [REFERRING] - 6 Weeks Patient Instructions/Handouts: Vaginal Delivery (DC) Activity/Diet/Wound Care/Special Instructions: No intercourse or anything per vagina for 6 weeks. Please call your physician for any excessive vaginal bleeding, abdominal pain, fever, chills. Discharge Disposition: HOME SELF-CARE
[2020-07-15 08:34] LABS: C. trachomatis,PCR Negative (Neg,Equiv); Chlamydia trachomatis Source Urine; N. gonorrhoeae,PCR Negative (Neg,Equiv); Neisseria Source Urine
[2020-07-15] MEDS: IBUPROFEN 600 MG TAB PO PRN (08:35)
[2020-07-15 10:42] VITALS: PULSE 84; RESP 18; TEMP 98.2
== END 2020-07-15 16:00 | disposition home or self-care (01) | DRG 807 ==
LOC: FBPOP 05:01 → 4FBP 05:21
PROVIDERS: ADMIT Obstetrics & Gynecology; ATTEND Obstetrics & Gynecology
PROC: 10E0XZZ Delivery of Products of Conception, External Approach (ICD-10-PCS; principal; 2020-07-13)
PROC: 3E0R3NZ Introduction of Analgesics, Hypnotics, Sedatives into Spinal Canal, Percutaneous Approach (ICD-10-PCS; principal; 2020-07-13)
PROC: 10907ZC Drainage of Amniotic Fluid, Therapeutic from Products of Conception, Via Natural or Artificial Opening (ICD-10-PCS; principal; 2020-07-13)
PROC: 00HU33Z Insertion of Infusion Device into Spinal Canal, Percutaneous Approach (ICD-10-PCS; principal; 2020-07-13)
PROC: 3E033VJ Introduction of Other Hormone into Peripheral Vein, Percutaneous Approach (ICD-10-PCS; principal; 2020-07-13)
DX: O69.81X0 Labor and delivery complicated by cord around neck, without compression, not applicable or unspecified (principal); Z37.0 Single live birth; Z3A.38 38 weeks gestation of pregnancy; Z82.49 Family history of ischemic heart disease and other diseases of the circulatory system; Z83.3 Family history of diabetes mellitus; Z87.440 Personal history of urinary (tract) infections
CPT/HCPCS: 80306; 81001; 82947; 85025; 86762; 86780; 86850; 86900; 86901; 87340; 87390; 87491; 87591; 88307

== ENCOUNTER 2022-03-28 16:32 | Emergency (ER) | payer OTHER ==
[2022-03-28 17:18] VITALS: BP 109/77; PULSE 107; RESP 18; TEMP 99.5
[2022-03-28 17:57] LABS: Appearance,Urine Cloudy (Clear); Bacteria,Urine Occasional /hpf; Bilirubin,Urine Negative (Negative); Blood,Urine Large (Negative); Color,Urine Yellow; Glucose,Urine (UA) Negative (Negative); Leukocyte Esterase,Urine Large (Negative); Mucus,Urine Few /hpf; Nitrite,Urine Positive (Negative); Protein,Urine Trace (Negative); RBC,Urine 8 /hpf (0-5); Specific Gravity,Urine 1.016 (1.001-1.035); Squamous Epithelial Cell,Urine 4 /hpf (0-4); Urobilinogen,Urine <2.0 mg/dL (<2.0); WBC,Urine 143 /hpf (0-5)
[2022-03-28 18:24] LABS: Ketones,Urine 3+ (Negative)
[2022-03-28] MEDS ORDERED: SODIUM CHLORIDE 0.9% 2,000 ML IV STA (23:41)
== END 2022-03-28 23:40 | disposition left against medical advice (07) ==
LOC: EC 16:32
DX: Z53.21 Procedure and treatment not carried out due to patient leaving prior to being seen by health care provider (principal)
CPT/HCPCS: 81001; 87077; 87086; 87186; 99499

== ENCOUNTER 2023-10-30 11:25 | Emergency (ER) | payer OTHER ==
--- NOTE | 2023-10-30 11:31 | ED ---
General Adult HPI - General Source: patient, RN notes reviewed Mode of arrival: ambulatory Limitations: no limitations <Jorge Ballard - Last Filed: 10/30/23 11:29> - General Source: patient, RN notes reviewed Mode of arrival: ambulatory Limitations: no limitations <Salome Edwards - Last Filed: 11/01/23 19:27> <Donta Garzon - Last Filed: 11/08/23 11:00> - General Stated complaint: Vaginal bleeding Time Seen by Provider: 10/30/23 11:29 - History of Present Illness Initial comments: 28-year-old female presents emergency Department with chief complaint of vaginal bleeding. Patient states that she is currently states that she's unsure how far along. She's had no care. Patient states she believes she is O- blood type. She states she sees blood when she wipes is not sure if it's vaginal versus urinary. She does have some dysuria. (Jorge Ballard) 28-year-old female presents to the emergency department chief complaint of bleeding. She states that she isn't sure if this is coming from the urethra or vagina. She states that his been going on for about one week. She is currently but she is unsure how far along she has. Does not know her last mens trual period. She also admits to dysuria. She also admits to some intermittent cramping. Denies fever, chills. She states that with her prior pregnancies as well as an [facility] with Dr. Smith she has yet to see him this . She does report a past medical history hypertension and diabetes. (Salome Edwards) 28 female to the emergency department for evaluation of some vaginal bleeding with abdominal pain and cramping. (Donta Garzon) - Related Data Previous Rx's Medication Instructions Recorded Cephalexin [Keflex] 500 mg PO Q8HR #21 cap 10/30/23 Allergies Allergy/AdvReac Type Severity Reaction Status Date / Time No Known Allergies Allergy Verified 10/30/23 22:36 Review of Systems ROS Other: All systems not noted in ROS Statement are negative. <Jorge Ballard - Last Filed: 10/30/23 11:29> ROS Other: All systems not noted in ROS Statement are negative. <JerryGianniSalome - Last Filed: 11/01/23 19:27> ROS Other: All systems not noted in ROS Statement are negative. <Donta Garzon - Last Filed: 11/08/23 11:00> ROS Statement: Those systems with pertinent positive or pertinent negative responses have been documented in the HPI. Past Medical History Past Medical History: No Reported History Additional Past Medical History / Comment(s): Obstetric history: She has had 2 previous vaginal deliveries. This is her third . She had care with Dr. Gomez. I did attempt to get records but there is not much in way of labs or history and this record obtained from [facility]. She does have a history of a Kidney infection with this , treated with IV antibiotics. History of Any Multi-Drug Resistant Organisms: None Reported Past Surgical History: No Surgical Hx Reported Past Anesthesia/Blood Transfusion Reactions: No Reported Reaction Past Psychological History: No Psychological Hx Reported Smoking Status: Never smoker Past Alcohol Use History: None Reported Past Drug Use History: Marijuana - Past Family History Mother Family Medical History: Hypertension Father Family Medical History: Diabetes Mellitus, Hypertension <Jorge Ballard - Last Filed: 10/30/23 11:29> General Exam <Jorge Ballard - Last Filed: 10/30/23 11:29> Limitations: no limitations General appearance: alert, in no apparent distress Head exam: Present: atraumatic, normocephalic, normal inspection Eye exam: Present: normal appearance, PERRL, EOMI. Absent: scleral icterus, conjunctival injection, periorbital swelling ENT exam: Present: normal exam, mucous membranes moist Neck exam: Present: normal inspection. Absent: tenderness, meningismus, lymphadenopathy Respiratory exam: Present: normal lung sounds bilaterally. Absent: respiratory distress, wheezes, rales, rhonchi, stridor Cardiovascular Exam: Present: regular rate, normal rhythm, normal heart sounds. Absent: systolic murmur, diastolic murmur, rubs, gallop, clicks GI/Abdominal exam: Present: soft, normal bowel sounds. Absent: distended, tenderness, guarding, rebound, rigid Back exam: Present: normal inspection. Absent: CVA tenderness (R), CVA tend erness (L) Neurological exam: Present: alert, oriented X3 Psychiatric exam: Present: normal affect, normal mood Skin exam: Present: warm, dry, intact, normal color. Absent: rash <Salome Edwards - Last Filed: 11/01/23 19:27> General appearance: alert, in no apparent distress Head exam: Present: atraumatic, normocephalic, normal inspection Eye exam: Present: normal appearance, PERRL, EOMI. Absent: scleral icterus, conjunctival injection, periorbital swelling ENT exam: Present: normal exam, mucous membranes moist Neck exam: Present: normal inspection. Absent: tenderness, meningismus, lymphadenopathy Respiratory exam: Present: normal lung sounds bilaterally. Absent: respiratory distress, wheezes, rales, rhonchi, stridor Cardiovascular Exam: Present: regular rate, normal rhythm, normal heart sounds. Absent: systolic murmur, diastolic murmur, rubs, gallop, clicks GI/Abdominal exam: Present: soft, normal bowel sounds. Absent: distended, tenderness, guarding, rebound, rigid Extremities exam: Present: normal inspection, full ROM, normal capillary refill. Absent: tenderness, pedal edema, joint swelling, calf tenderness Back exam: Present: normal inspection Neurological exam: Present: alert, oriented X3, CN II-XII intact Psychiatric exam: Present: normal affect, normal mood Skin exam: Present: warm, dry, intact, normal color. Absent: rash <Donta Garzon - Last Filed: 11/08/23 11:00> - General Exam Comments Initial Comments: Visual Physical Exam Vital signs reviewed General: Well-appearing, nontoxic, no acute distress. Head: Normocephalic, atraumatic Eyes: PERRLA, EOMI ENT: Airway patent Chest: Nonlabored breathing Skin: No visual rash, normal skin tone Neuro: Alert and oriented 3 Musculoskeletal: No gross abnormalities (Jorge Ballard) Course <Donta Garzon - Last Filed: 11/08/23 11:00> Vital Signs 10/30/23 10/30/23 10/30/23 11:32 13:03 15:33 Temperature 98.4 F 98.7 F 98.3 F Pulse Rate 106 H 82 68 Respiratory 20 16 Rate Blood Pressure 101/60 91/56 98/64 O2 Sat by Pulse 99 99 97 Oximetry 1210/30/23 10/31/23 18:45 23:42 02:10 Temperature 97.9 F 98.1 F Pulse Rate 83 87 80 Respiratory 16 20 18 Rate Blood Pressure 96/67 100/61 92/52 O2 Sat by Pulse 97 100 100 Oximetry - Reevaluation(s) Reevaluation #1: 10/30/23 23:08 Medical record is reviewed (Donta Garzon) Reevaluation #2: 10/30/23 23:09 Patient symptoms are improving tolerating oral intake (Donta Garzon) Reevaluation #3: 10/30/23 23:09 Patient informed results and questions answered (Donta Garzon) Medical Decision Making <Jorge Ballard - Last Filed: 10/30/23 11:29> - Lab Data Result diagrams: 10/30/23 12:04 10/30/23 12:04 <Salome Edwards - Last Filed: 11/01/23 19:27> - Lab Data Result diagrams: 10/30/23 12:04 10/30/23 12:04 <Donta Garzon - Last Filed: 11/08/23 11:00> - Medical Decision Making I completed the quick note portion of this chart signed Jorge Ballard PA-C (Jorge Ballard) Was pt. sent in by a medical professional or institution (MARSHALL Dumont, SEWER INSPECTOR, urgent care, hospital, or halfway...) When possible be specific @ -No Did you speak to anyone other than the patient for history (EMS, parent, family, police, friend...)? What history was obtained from this source @ -No Did you review nursing and triage notes (agree or disagree)? Why? @ -I reviewed and agree with nursing and triage notes Were old charts reviewed (outside hosp., previous admission, EMS record, old EKG, old radiological studies, urgent care reports/EKG's, halfway records)? Report findings @ -No old charts were reviewed Differential Diagnosis (chest pain, altered mental status, abdominal pain women, abdominal pain men, vaginal bleeding, weakness, fever, dyspnea, syncope, headache, dizziness, GI bleed, back pain, seizure, CVA, palpatations, mental health, musculoskeletal)? @ -Differential Vaginal Bleeding: Spontaneous , threatened , molar , ectopic , bloody show, incompetent cervix, abruptioplacenta, placenta previa, uterine rupture, dysfunctional uterine bleeding, hemorrhage, uterine fibroids, this is not meant to be an all-inclusive list. EKG interpreted by me (3pts min.). @ -None X-rays interpreted by me (1pt min.). @ -None done CT interpreted by me (1pt min.). @ -CT shows gravid uterus, Placenta previa, multiple dilated enhancing periuterine arterial and venous structures no clear evidence of thrombosis. U/S interpreted by me (1pt. min.). @ - ultrasound shows a single live intrauterine with estimated gestational age of 15 weeks 1 day, anterior placenta with complete placenta previa; dilated to the structures within the bilateral adnexa staining sup eriorly from the pelvis that appear abnormal with an unclear etiology, possibly dilated ureters. Radiology recommends renal ultrasound to exclude underlying hydronephrosis. Renal ultrasound performed shows no free hydronephrosis on either side, engorged and adnexal vessels on the left; there is a partial that appears thrombosed inferior to the uterus, unable to exclude venous thrombosis including the possibility of ovarian venous thrombosis What testing was considered but not performed or refused? (CT, X-rays, U/S, labs)? Why? @ -None What meds were considered but not given or refused? Why? @ -None Did you discuss the management of the patient with other professionals (professionals i.e. , PA, SEWER INSPECTOR, lab, RT, psych nurse, geriatric social worker, button broacher, teacher, chief growth officer, spring encaser)? Give summary @ -Management was discussed with DE ICER FINISHER, Dr. Bullock including the results of ultrasound and kidney, bladder ultrasound with the possibility of ovarian venous thrombosis Dr. Bullock recommended consult to vascular and definitive testing including a computed tomography scan even at the patient's 15-week gravid state. Discussed with Dr. Adorno, vascular surgery who states testing modality for patients condition would be contrast CT. If positive for venous thrombosis, t reatment with Lovenox vs empiric treatment with Lovenox Was smoking cessation discussed for >3mins.? @ -No Was critical care preformed (if so, how long)? @ -No Were there social determinants of health that impacted care today? How? (Homelessness, low income, unemployed, alcoholism, drug addiction, transp ortation, low edu. Level, literacy, decrease access to med. care, care home, rehab)? @ -No Was there de-escalation of care discussed even if they declined (Discuss DNR or withdrawal of care, Hospice)? DNR status @ -No What co-morbidities impacted this encounter? (DM, HTN, Smoking, COPD, CAD, Cancer, CVA, ARF, Chemo, Hep., AIDS, mental health diagnosis, sleep apnea, morbid obesity)? @ -None Was patient admitted / discharged? Hospital course, mention meds given and route, prescriptions, significant lab abnormalities, going to OR and other pertinent info. @ -Patient presented to the emergency department for chief complaint of vaginal bleeding In . Patient is unsure how far along she is. She has not had care up to this point. Laboratory studies obtained. Blood type O+; CBC within normal limits; CMP shows sodium 135, potassium 3.6, creatinine 0.54, bilirubin 1.5, LFTs within normal limits; UA shows 4+ ketones, positive nitrite, moderate leukocyte esterase. Patient will be treated for urinary tract infection. Patient given 2 L normal saline. ultrasound shows a single live intrauterine with estimated gestational age of 15 weeks 1 day, anterior placenta with complete placenta previa; dilated to the structures within the bilateral adnexa staining superiorly from the pelvis that appear abnormal with an unclear etiology, possibly dilated ureters. Radiology recommends renal ultrasound to exclude underlying hydronephrosis. Renal ultrasound performed shows no free hydronephrosis on either side, engorged and adnexal vessels on the left; there is a partial that appears thrombosed inferior to the uterus, unable to exclude venous thrombosis including the possibility of ovarian venous thrombosis. These results were discussed with Dr. Bullock, DE ICER FINISHER who recommended vascular surgery consult and definitive testing including computed tomography scan. Computed tomography scan performed case was signed out to Dr. Garzon for follow-up on computed tomography scan results. Undiagnosed new problem with uncertain prognosis? @ -No Drug Therapy requiring intensive monitoring for toxicity (Heparin, Nitro, Insulin, Cardizem)? @ -No Were any procedures done? @ -No Diagnosis/symptom? @ -Vaginal bleeding Acute, or Chronic, or Acute on Chronic? @ -Acute Uncomplicated (without systemic symptoms) or Complicated (systemic symptoms)? @ -Unconjugated Side effects of treatment? @ -No Exacerbation, Progression, or Severe Exacerbation? @ -No Poses a threat to life or bodily function? How? (Chest pain, [place], [place], pneumonia, PE, COPD, DKA, ARF, appy, cholecystitis, CVA, Diverticulitis, Homicidal, S uicidal, threat to staff... and all critical care pts) @ -No (Salome Edwards) 20 female DF for evaluation of abdominal pain cramping, decision-making and does undergo computed tomography scan of the abdomen and pelvis after multiple consults with multiple different professionals confined possibility of pelvic venous thromboses, patient is without evidence of pelvic venous thrombosis and will discharged home on antibiotics (Donta Garzon) - Lab Data Lab Results 10/30/23 10/30/23 10/30/23 Range/Units 12:04 12:04 12:04 WBC 6.7 (3.8-10.6) k/uL RBC 4.30 (3.80-5.40) m/uL Hgb 12.3 (11.4-16.0) gm/dL Hct 36.7 (34.0-46.0) % MCV 85.4 (80.0-100.0) fL MCH 28.5 (25.0-35.0) pg MCHC 33.4 (31.0-37.0) g/dL RDW 13.5 (11.5-15.5) % Plt Count 193 (150-450) k/uL MPV 8.8 Neutrophils % 73 % Lymphocytes % 21 % Monocytes % 4 % Eosinophils % 1 % Basophils % 0 % Neutrophils # 4.9 (1.3-7.7) k/uL Lymphocytes # 1.4 (1.0-4.8) k/uL Monocytes # 0.3 (0-1.0) k/uL Eosinophils # 0.1 (0-0.7) k/uL Basophils # 0.0 (0-0.2) k/uL Sodium 135 L (137-145) mmol/L Potassium 3.6 (3.5-5.1) mmol/L Chloride 103 (98-107) mmol/L Carbon Dioxide 23 (22-30) mmol/L Anion Gap 9 mmol/L BUN 9 (7-17) mg/dL Creatinine 0.54 (0.52-1.04) mg/dL Est GFR (CKD-EPI)AfAm >90 (>60 ml/min/1.73 sqM) Est GFR (CKD-EPI)NonAf >90 (>60 ml/min/1.73 sqM) Glucose 75 (74-99) mg/dL Calcium 9.2 (8.4-10.2) mg/dL Total Bilirubin 1.5 H (0.2-1.3) mg/dL AST 21 (14-36) U/L ALT 20 (4-34) U/L Alkaline Phosphatase 64 (38-126) U/L Total Protein 7.0 (6.3-8.2) g/dL Albumin 4.0 (3.5-5.0) g/dL HCG, Quant 879713.0 mIU/mL Urine Color [place] Urine Appearance Clear (Clear) Urine pH 6.0 (5.0-8.0) Ur Specific Hood 1.030 (1.001-1.035) Urine Protein Trace H (Negative) Urine Glucose (UA) Negative (Negative) Urine Ketones 4+ H (Negative) Urine Blood Negative (Negative) Urine Nitrite Positive H (Negative) Urine Bilirubin 1+ H (Negative) Urine Urobilinogen 1.0 (<2.0) mg/dL Ur Leukocyte Esterase Moderate H (Negative) Urine RBC 18 H (0-5) /hpf Urine WBC 79 H (0-5) /hpf Ur Squamous Epith Cells 5 H (0-4) /hpf Urine Bacteria Rare H (None) /hpf Urine Mucus Many H (None) /hpf Blood Type Blood Type Recheck Bld Type Recheck Status 10/30/23 Range/Units 12:11 WBC (3.8-10.6) k/uL RBC (3.80-5.40) m/uL Hgb (11.4-16.0) gm/dL Hct (34.0-46.0) % MCV (80.0-100.0) fL MCH (25.0-35.0) pg MCHC (31.0-37.0) g/dL RDW (11.5-15.5) % Plt Count (150-450) k/uL MPV Neutrophils % % Lymphocytes % % Monocytes % % Eosinophils % % Basophils % % Neutrophils # (1.3-7.7) k/uL Lymphocytes # (1.0-4.8) k/uL Monocytes # (0-1.0) k/uL Eosinophils # (0-0.7) k/uL Basophils # (0-0.2) k/uL Sodium (137-145) mmol/L Potassium (3.5-5.1) mmol/L Chloride (98-107) mmol/L Carbon Dioxide (22-30) mmol/L Anion Gap mmol/L BUN (7-17) mg/dL Creatinine (0.52-1.04) mg/dL Est GFR (CKD-EPI)AfAm (>60 ml/min/1.73 sqM) Est GFR (CKD-EPI)NonAf (>60 ml/min/1.73 sqM) Glucose (74-99) mg/dL Calcium (8.4-10.2) mg/dL Total Bilirubin (0.2-1.3) mg/dL AST (14-36) U/L ALT (4-34) U/L Alkaline Phosphatase (38-126) U/L Total Protein (6.3-8.2) g/dL Albumin (3.5-5.0) g/dL HCG, Quant mIU/mL Urine Color Urine Appearance (Clear) Urine pH (5.0-8.0) Ur Specific Hood (1.001-1.035) Urine Protein (Negative) Urine Glucose (UA) (Negative) Urine Ketones (Negative) Urine Blood (Negative) Urine Nitrite (Negative) Urine Bilirubin (Negative) Urine Urobilinogen (<2.0) mg/dL Ur Leukocyte Esterase (Negative) Urine RBC (0-5) /hpf Urine WBC (0-5) /hpf Ur Squamous Epith Cells (0-4) /hpf Urine Bacteria (None) /hpf Urine Mucus (None) /hpf Blood Type O Positive Blood Type Recheck O Pos Bld Type Recheck Status No Disposition <Jorge Ballard - Last Filed: 10/30/23 11:29> Is patient prescribed a controlled substance at d/c from ED?: No <Salome Edwards - Last Filed: 11/01/23 19:27> Is patient prescribed a controlled substance at d/c from ED?: No Time of Disposition: 23:10 <Donta Garzon - Last Filed: 11/08/23 11:00> Clinical Impression: Threatened , Abdominal pain affecting , UTI (urinary tract infection) Disposition: HOME SELF-CARE Condition: Fair Instructions (If sedation given, give patient instructions): Urinary Tract Infection in Women (ED), Abdominal Pain in (ED) Prescriptions: Cephalexin [Keflex] 500 mg PO Q8HR #21 cap Referrals: None,Stated [Primary Care Provider] - 1-2 days
[2023-10-30 12:23] LABS: Basophils % (A) 0 %; Eosinophils # (A) 0.1 k/uL (0-0.7); Eosinophils % (A) 1 %; HCT 36.7 % (34.0-46.0); HGB 12.3 gm/dL (11.4-16.0); Lymphocytes # (A) 1.4 k/uL (1.0-4.8); Lymphocytes % (A) 21 %; MCH 28.5 pg (25.0-35.0); MCHC 33.4 g/dL (31.0-37.0); MCV 85.4 fL (80.0-100.0); Mean Platelet Volume 8.8; Monocytes # (A) 0.3 k/uL (0-1.0); Monocytes % (A) 4 %; Neutrophils # (A) 4.9 k/uL (1.3-7.7); Neutrophils % (A) 73 %; Platelet Count 193 k/uL (150-450); RDW 13.5 % (11.5-15.5); WBC 6.7 k/uL (3.8-10.6)
[2023-10-30 12:30] LABS: Appearance,Urine Clear (Clear); Color,Urine Orange; Glucose,Urine (UA) Negative (Negative); Protein,Urine Trace (Negative)
[2023-10-30 12:31] LABS: Bilirubin,Urine 1+ (Negative); Blood,Urine Negative (Negative); Ketones,Urine 4+ (Negative); Leukocyte Esterase,Urine Moderate (Negative); Nitrite,Urine Positive (Negative)
[2023-10-30 12:34] LABS: Bacteria,Urine Rare /hpf; Mucus,Urine Many /hpf; RBC,Urine 18 /hpf (0-5); Squamous Epithelial Cell,Urine 5 /hpf (0-4); WBC,Urine 79 /hpf (0-5)
[2023-10-30 12:38] LABS: ALT 20 U/L (4-34); AST 21 U/L (14-36); African American GFR (CKD) >90 (>60 ml/min/1.73 sqM); Alkaline Phosphatase 64 U/L (38-126); Anion Gap 9 mmol/L; Blood Urea Nitrogen 9 mg/dL (7-17); Calcium 9.2 mg/dL (8.4-10.2); Carbon Dioxide 23 mmol/L (22-30); Chloride 103 mmol/L (98-107); Glucose 75 mg/dL (74-99); Non-African American GFR(CKD) >90 (>60 ml/min/1.73 sqM); Potassium 3.6 mmol/L (3.5-5.1); Sodium 135 mmol/L (137-145); Total Bilirubin 1.5 mg/dL (0.2-1.3)
--- NOTE | 2023-10-30 13:10 | US ---
EXAMINATION TYPE: US OB >= 14 wk fetus DATE OF EXAM: 10/30/2023 COMPARISON: None CLINICAL INDICATION: Female, 28 years old with history of pain; Spotting and cramping x 1 week; ; Hx of gestational diabetes and HTN; Anemia. TECHNIQUE: Transabdominal (TA) GESTATIONAL AGE / DATING Physician Established: Not established Dates by LMP: Unknown LMP; about early june Dates by First Scan: This is first scan Dates by Current Scan: (15 weeks/1 days) EDC: 04/21/2024 Beta HCG (if available): Not done SURVEY IUP: Single PLACENTA: Anterior PREVIA: Complete REMINGTON: 9.8 cm, low normal CERVICAL LENGTH (transabdominal: norm > 3.0cm): 3.2 cm BIOMETRY PRESENTATION: Transverse LIE: Transverse with head maternal R BPD: 2.9 cm 15 weeks / 1 days HC: 10.6 cm 15 weeks / 0 days AC: 8.2 cm 14 weeks / 4 days FL: 1.5 cm 14 weeks / 2 days ESTIMATED WEIGHT IN GRAMS: 99 grams ESTIMATED WEIGHT IN LBS/OZ: 0 lbs. 3 oz. WEIGHT PERCENTAGE BASED ON ESTABLISHED DATES: <3% HC/AC: 1.3 Normal FL/AC: 17.6 Normal HEART RATE: 150 bpm RHYTHM: Normal WHITE SUGAR SUPERVISOR NOTES: * Dilated, tubular structures seen within the bilateral adnexa extending from the level of the cervi x to the bilateral flank areas; not seeming to cause hydronephrosis. (Provided images do not clearly show the kidneys). * ? Contraction vs fibroid seen posterior uterus = 3.9 x 3.7 x 3.4 cm. IMPRESSION: 1. Single live intrauterine with estimated gestational age of 15 weeks 1 day by current ult rasound biometry. EFW% is very low <3%. HC/AC measurement does not suggest any brain sparing physiolo gy. Follow-up recommended to ensure appropriate interval growth. 2. Anterior placenta with complete placenta previa. 3. Low normal REMINGTON at 9.8 cm. 4. Dilated tubular structures within the bilateral adnexa extending superiorly from the pelvis. The s tructures appear abnormal. Etiology unclear. Possible dilated adnexal/gonadal veins with slow flow. D ilated ureters are also possible. Recommend renal ultrasound to exclude any underlying hydronephrosis . 5. Either a 3.9 cm intramural fibroid posteriorly in the uterus versus a Bin Alvarado contraction. T his can be reassessed at short interval follow-up. 6. Complete survey recommended at 18-20 weeks.
[2023-10-30] MEDS ORDERED: SODIUM CHLORIDE 0.9% 1,000 ML IV ONE (14:11)
[2023-10-30] MEDS ORDERED: CEPHALEXIN 500 MG CAP PO STA (14:12)
--- NOTE | 2023-10-30 15:20 | US ---
EXAMINATION TYPE: US kidneys/renal and bladder DATE OF EXAM: 10/30/2023 COMPARISON: OB ultrasound earlier today CLINICAL INDICATION: Female, 28 years old with history of possible hydro on US; tubular structu re seen under UT and within left adnexa during US with unknown etiology, patient is 15 wks preg nant with UTI EXAM MEASUREMENTS: Right Kidney: 11.2 x 5.2 x 4.7 cm Left Kidney: 10.3 x 4.9 x 6.3 cm Right Kidney: Mild fullness of the renal collecting system. No ismael calyceal dilatation. Left Kidney: No hydronephrosis or masses seen Bladder: wnl Bilateral Jets seen: not seen after 2 mins, patient does have IV bag and has not been drinking Reinforcer notes: tubular structure within left adnexa appears to be engorged venous structures. Tubular structure inferior to UT appears to be normal vessels along with a possibly thrombosed vess el. No color flow. Internal echoes are seen. IMPRESSION: 1. Mild fullness of the right renal collecting system probably physiologic due to the patient's gravi d state. No ismael hydronephrosis on either side. 2. Engorged adnexal vessels on the left, either physiologic versus pelvic congestion syndrome. 3. Additionally, there is a vessel which appears thrombosed inferior to the uterus. Unable to exclude venous thrombosis including the possibility of ovarian venous thrombosis. 4. Neither ureteral jet is seen during the course of 2 minutes of imaging. Correlate for FRANK, possibl y from dehydration.
--- NOTE | 2023-10-30 20:50 | CT ---
EXAMINATION TYPE: CT abdomen pelvis w con CT DLP: 562 mGycm, Automated exposure control for dose reduction was used. DATE OF EXAM: 10/30/2023 6:59 PM COMPARISON: Refer previous CT 11/24/2018, OB ultrasound 10/30/2023 CLINICAL INDICATION:Female, 28 years old with history of ?ovarian venous thrombosis; lower abdominal pain, r/o ovarian venous thrombosis, pt is 15 weeks and was educated TECHNIQUE: Axial CT of the abdomen and pelvis, performed postcontrast in late arterial phase and on a delayed a cyst. Sagittal and coronal reformats were created on a separate workstation. Contrast used:100 mL of Isovue 300 with IV Contrast, (none if empty) Oral contrast used: without Oral Contrast (none if empty) FINDINGS: Examination is limited in scope as the superiormost extent of the study begins at the lower liver/upp er kidneys. LOWER CHEST: Not included in the [id number]. ABDOMEN LIVER: Incompletely seen. Inferior tip unremarkable. GALLBLADDER AND BILE DUCTS: Incompletely seen. Visualized gallbladder grossly unremarkable. PANCREAS: Incompletely seen. Visualized portion grossly unremarkable. SPLEEN: Not seen in the [id number]. ADRENAL GLANDS: Not seen in the [id number].. KIDNEYS AND URETERS: The inferior half of the kidneys are seen, and appear to concentrate and excrete contrast symmetrically without evidence of hydronephrosis. PELVIS BLADDER: Unremarkable REPRODUCTIVE: Gravid uterus is identified. Placenta appears to lie anteriorly and extends inferiorly towards the right. Placenta appears low-lying suggesting placenta previa and this was better demonstr ated by recent OB ultrasound. Single intrauterine fetus, not otherwise assessed by this exam. There i s a heterogeneous appearance of the uterus, likely consistent with gravid state. There are multiple d ilated and enhancing periuterine arterial and venous structures seen, without any clear evidence to s uggest thrombosis, but the sensitivity of CT for this is not known. ABDOMEN & PELVIS STOMACH AND BOWEL: Visualized stomach and small bowel show no discrete abnormality. There is a normal appendix. Moderate stool throughout the colon with no focal abnormality detected. PERITONEUM/RETROPERITONEUM: No evidence of pneumoperitoneum or free fluid. VASCULATURE: Aorta and branches enhance normally. There is no evidence of AAA. MUSCULOSKELETAL: Unremarkable osseous structures. LYMPH NODES: No gross evidence for lymphadenopathy. SOFT TISSUE/ABDOMINAL WALL: Small fat-containing umbilical hernia. IMPRESSION: 1. Kidneys enhance symmetrically and there is no evidence of hydroureteronephrosis. 2. Gravid uterus containing a single intrauterine . There is placenta previa, better demons trated by prior ultrasound. 3. Multiple dilated and enhancing periuterine arterial and venous structures, probably consistent wi th gravid state. No clear evidence of thrombosis identified by this exam.
[2023-10-30] MEDS ORDERED: SODIUM CHLORIDE 0.9% 1,000 ML IV STA (21:24)
[2023-10-30 23:52] VITALS: TEMP 98.1
[2023-10-31 02:13] VITALS: BP 92/52; PULSE 80; RESP 18
== END 2023-10-31 02:11 | disposition home or self-care (01) ==
LOC: EC 11:25
DX: O20.0 Threatened abortion (principal); O23.42 Unspecified infection of urinary tract in pregnancy, second trimester; N39.0 Urinary tract infection, site not specified; O24.112 Pre-existing type 2 diabetes mellitus, in pregnancy, second trimester; O10.912 Unspecified pre-existing hypertension complicating pregnancy, second trimester; O99.332 Smoking (tobacco) complicating pregnancy, second trimester; E11.9 Type 2 diabetes mellitus without complications; F12.90 Cannabis use, unspecified, uncomplicated; Z3A.15 15 weeks gestation of pregnancy
CPT/HCPCS: 36415; 86900; 86901; 80053; 85025; 81001; 84702; 76805; 76770; 74177; 99284; 96365; 96366 ×2; 96361; J0696; Q9967

== ENCOUNTER 2024-04-07 10:07 | Outpatient (CLI) | payer OTHER ==
[2024-04-07 12:34] LABS: Basophils % (A) 0 %; Eosinophils # (A) 0.1 k/uL (0-0.7); Eosinophils % (A) 2 %; HCT 36.2 % (34.0-46.0); HGB 10.9 gm/dL (11.4-16.0); Hypochromasia Moderate; Lymphocytes # (A) 1.3 k/uL (1.0-4.8); Lymphocytes % (A) 16 %; MCH 25.6 pg (25.0-35.0); MCHC 30.2 g/dL (31.0-37.0); Mean Platelet Volume 10.1; Monocytes # (A) 0.5 k/uL (0-1.0); Monocytes % (A) 6 %; Neutrophils # (A) 5.8 k/uL (1.3-7.7); Neutrophils % (A) 73 %; Platelet Count 149 k/uL (150-450); RBC 4.26 m/uL (3.80-5.40); RDW 15.3 % (11.5-15.5); WBC 7.9 k/uL (3.8-10.6)
--- NOTE | 2024-04-07 12:39 | US ---
EXAMINATION TYPE: US OB >= 14 wk fetus, US OB TV Cervical Measurement DATE OF EXAM: 04/07/2024 COMPARISON: US 10/30/2023 CLINICAL INDICATION: Female, 28 years old with history of check placenta no care; . TECHNIQUE: Transvaginal (TV) and Transabdominal (TA) GESTATIONAL AGE / DATING Physician Established: (38 weeks/0 days) EDC: 04/21/2024 Dates by LMP: Unknown to patient. Dates by First Scan: (38 weeks/0 days) EDC: 04/21/2024 Dates by Current Scan: (36 weeks/1 day) EDC: 05/04/2024 SURVEY IUP: Single PLACENTA: Anterior Extends to the right lateral aspect. Complex area seen within measuring 1.1 x 1.0 x 1.0 cm most compatible with venous tellez. PREVIA: Placental tip not seen at or near internal os on transvaginal exam images. Placenta appears to extend to the lateral right on transabdominal imaging. REMINGTON: 11.9 cm Normal CERVICAL LENGTH (transabdominal: norm > 3.0cm): 3.2 cm CERVICAL LENGTH (transvaginal: norm> 2.5cm): 3.1 cm - shortest measurement. (Supplemental transvaginal imaging performed to verify cervical length.) BIOMETRY PRESENTATION: Vertex LIE: Longitudinal BPD: 8.76 cm 35 weeks / 3 days HC: 32.09 cm 36 weeks / 2 days AC: 32.07 cm 36 weeks / 0 days FL: 7.10 cm 36 weeks / 3 days ESTIMATED WEIGHT IN GRAMS: 2835 grams ESTIMATED WEIGHT IN LBS/OZ: 6 lbs. 4 oz. WEIGHT PERCENTAGE BASED ON ESTABLISHED DATES: 16% HC/AC: 1.0 Normal FL/AC: 22% Normal HEART RATE: 138 bpm RHYTHM: Normal EXAMINATION TYPE: US OB TV Cervical Measurement DATE OF EXAM: 04/07/2024 COMPARISON: US 10/30/2023 REASON FOR EXAM: Per Ordering Physician?this transvaginal scan is to assess the CERVICAL LENGTH for i ncompetence or funneling. GESTATIONAL AGE / DATING Physician Established: (38 weeks/0 days) EDC: 04/21/2024 Dates By Current Scan: 36 weeks/ 1 day EDC: 05/04/2024 MATERNAL/ SURVEY CERVICAL LENGTH (transvaginal: norm> 2.5cm): 3.1 cm - shortest measurement. Ultrasound evidence of shortened cervix? No Ultrasound evidence of funneling? No HEART RATE: 138 bpm RHYTHM: Normal IMPRESSION: * Single live intrauterine gestation, information as described above. * Cervical measurements as described above.
[2024-04-07 13:07] LABS: Appearance,Urine Cloudy (Clear); Bacteria,Urine Rare /hpf; Bilirubin,Urine Negative (Negative); Blood,Urine Negative (Negative); Color,Urine Yellow; Glucose,Urine (UA) Negative (Negative); Hyaline Casts,Urine 1 /lpf (0-2); Ketones,Urine 2+ (Negative); Leukocyte Esterase,Urine Large (Negative); Mucus,Urine Few /hpf; Nitrite,Urine Negative (Negative); Protein,Urine Trace (Negative); RBC,Urine 2 /hpf (0-5); Specific Gravity,Urine 1.023 (1.001-1.035); Squamous Epithelial Cell,Urine 15 /hpf (0-4); WBC,Urine 15 /hpf (0-5)
[2024-04-07 13:16] LABS: Amphetamine Screen,Urine Not Detected (NotDetected); Barbiturate Screen,Urine Not Detected (NotDetected); Benzodiazepines Screen,Urine Not Detected (NotDetected); Cocaine Screen,Urine Not Detected (NotDetected); Methadone Screen, Urine Not Detected (NotDetected); Opiate Screen,Urine Not Detected (NotDetected); Oxycodone Screen, Urine Not Detected (NotDetected); Phencyclidine Screen,Urine Not Detected (NotDetected); Tricyclic Antidepressant,Urine Not Detected (NotDetected); Urn Cannabinoid Scrn Detected (NotDetected)
[2024-04-07 14:01] VITALS: BP 99/61; PULSE 107; RESP 16; TEMP 97.9
[2024-04-07 23:33] LABS: Hepatitis B Surface Antigen Nonreactive (Nonreactive)
--- NOTE | 2024-04-08 05:37 | P.MSEPDOC ---
Presenting Problems - Arrival Data Date of Arrival on Unit: 04/07/24 Time of Arrival on Unit: 10:07 Mode of Transport: Wheelchair - Complaint OB-Reason for Admission/Chief Complaint: Possible Onset of Labor Medical History - Information : 6 Para: 5 Term: 5 : 0 Abortions: Spontaneous or Elective: 0 Number of Living Children: 5 - Gestational Age Gestational Age by HILARIO (wks/days): 38 Weeks and 0 Days - History Complications: No Care Review of Systems - Review of Systems Constitutional: No problems Breast: No problems ENT: No problems Cardiovascular: No problems Respiratory: No problems Gastrointestinal: No problems Genitourinary: No problems Musculoskeletal: No problems Neurological: No problems Skin: No problems Vital Signs - Temperature Temperature: 97.9 F Temperature Source: Temporal Artery Scan - Pulse Right Brachial Pulse Rate: 107 Pulse Assessment Method: Automatic Cuff - Respirations Respiratory Rate: 16 Oxygen Delivery Method: Room Air - Blood Pressure Right Arm Blood Pressure: 99/61 Blood Pressure Mean: 73 Blood Pressure Source: Automatic Cuff Medical Screen Scoring - Cervical Exam Dilation (cm): 2 Effacement (%): 70 Station: -3 Membranes: Intact - Uterine Contractions Frequency From (mins): 5 Frequency To (mins): 7 Duration From (seconds): 50 Duration To (seconds): 60 Intensity: Mild Resting: Soft to palpation - Assessment - Baby A Baseline FHR: 135 Heart Rate - NICHD Category: Category I (Normal) NST: Reactive Physician Notification - Physician Notified Physician Notified Date: 04/07/24 Physician Notified Time: 13:00 Physician: Jessica Bullock Order Received: Yes - Notification Comment Comment: d/c home Maternal Triage Index - Maternal Triage Index Presenting for scheduled procedure w/no complaint: No - Stat/Priority 1 Stat Priority 1: No - Urgent/Priority 2 Urgent Priority 2: No - Prompt/Priority 3 Prompt Priority 3: No - Non-Urgent/Priority 4 Non-Urgent Priority 4: Yes Criteria Met for Priority 4: contractions Disposition - Disposition OB Disposition: Discharge to home Discharge Date: 04/07/24 Discharge Time: 13:15 I agree with the RN Medical Screening Exam: Yes Case reviewed; plan agreed upon as documented in EMR&OBIX.: Yes Comments: no previa noted on US. baby cat 1 heart tones. no cervical change in over an hour. labs drawn. 38 weeks by 14 week US. Diagnosis: FALSE LABOR AT OR AFTER 37 COMPLETED WEEKS OF GESTATION
[2024-04-09 12:41] LABS: N. gonorrhoeae,PCR Negative (Negative)
[2024-04-09 13:42] LABS: C. trachomatis,PCR Negative (Negative)
== END 2024-04-07 13:19 | disposition home or self-care (01) ==
LOC: FBPOP 10:07
PROVIDERS: ATTEND Obstetrics & Gynecology
DX: O47.1 False labor at or after 37 completed weeks of gestation (principal); O99.333 Smoking (tobacco) complicating pregnancy, third trimester; F17.200 Nicotine dependence, unspecified, uncomplicated; Z3A.38 38 weeks gestation of pregnancy
CPT/HCPCS: 59025; 36415; 86900; 86901; 86762; 82947; 85025; 86850; 87340; 81001; 87491; 87591; 86780; 80306; 76805; 76817; G0463; 99213

== ENCOUNTER 2024-04-21 16:26 | Outpatient (CLI) | payer OTHER ==
[2024-04-21 17:07] LABS: Appearance,Urine Cloudy (Clear); Bilirubin,Urine Negative (Negative); Blood,Urine Negative (Negative); Color,Urine Yellow; Glucose,Urine (UA) Negative (Negative); Ketones,Urine Negative (Negative); Leukocyte Esterase,Urine Large (Negative); Mucus,Urine Many /hpf; Nitrite,Urine Negative (Negative); PH, Urine 6.5 (5.0-8.0); Protein,Urine Trace (Negative); RBC,Urine 2 /hpf (0-5); Specific Gravity,Urine 1.024 (1.001-1.035); Squamous Epithelial Cell,Urine 9 /hpf (0-4); WBC,Urine 32 /hpf (0-5)
[2024-04-21] MEDS: CEPHALEXIN 500 MG CAP PO STA (17:29)
[2024-04-21 17:53] VITALS: BP 98/58; PULSE 82; RESP 16; TEMP 97.8
--- NOTE | 2024-06-10 14:57 | P.MSEPDOC ---
Presenting Problems - Arrival Data Date of Arrival on Unit: 04/21/24 Time of Arrival on Unit: 16:26 Mode of Transport: Wheelchair - Complaint OB-Reason for Admission/Chief Complaint: Possible Onset of Labor Comment: pt states she has been having cramps for 2 weeks Medical History - Information : 6 Para: 5 Term: 5 : 0 Abortions: Spontaneous or Elective: 0 Number of Living Children: 5 - Gestational Age Gestational Age by HILARIO (wks/days): 40 Weeks and 0 Days - History Complications: No Care Comment: pt states she had an ultrasound in early that showed a placenta previa, pt had an ultrasound 04/07 that showed previa resolved Review of Systems - Review of Systems Constitutional: No problems Breast: No problems ENT: No problems Cardiovascular: No problems Respiratory: No problems Gastrointestinal: No problems Genitourinary: No problems Musculoskeletal: No problems Neurological: No problems Skin: No problems Vital Signs - Temperature Temperature: 97.8 F Temperature Source: Oral - Pulse Right Brachial Pulse Rate: 82 Pulse Assessment Method: Automatic Cuff - Respirations Respiratory Rate: 16 O2 Sat by Pulse Oximetry: 100 - Blood Pressure Right Arm Blood Pressure: 98/58 Blood Pressure Mean: 71 Blood Pressure Source: Automatic Cuff Medical Screen Scoring - Cervical Exam Dilation (cm): 2 Effacement (%): 100 Station: -3 Membranes: Intact - Uterine Contractions Resting: Soft to palpation - Assessment - Baby A Baseline FHR: 145 Heart Rate - NICHD Category: Category I (Normal) NST: Reactive Physician Notification - Physician Notified Physician Notified Date: 04/21/24 Physician Notified Time: 16:53 Physician: Agatha Nash Order Received: Yes Maternal Triage Index - Maternal Triage Index Presenting for scheduled procedure w/no complaint: No - Stat/Priority 1 Stat Priority 1: No - Urgent/Priority 2 Urgent Priority 2: No - Prompt/Priority 3 Prompt Priority 3: No - Non-Urgent/Priority 4 Non-Urgent Priority 4: Yes Criteria Met for Priority 4: pt complains of cramping for 2 weeks Disposition - Disposition OB Disposition: Discharge to home, Written follow up instructions reviewed Discharge Date: 04/21/24 Discharge Time: 17:30 I agree with the RN Medical Screening Exam: Yes Physician's MSE Comment: I have neither seen nor examined the patient Case reviewed; plan agreed upon as documented in EMR&OBIX.: Yes Diagnosis: MATERNAL CARE FOR PROBLEM, UNSP, THIRD * DO NOT USE *
== END 2024-04-21 17:30 | disposition home or self-care (01) ==
LOC: FBPOP 16:26
PROVIDERS: ATTEND Obstetrics & Gynecology
DX: O47.1 False labor at or after 37 completed weeks of gestation (principal); O99.333 Smoking (tobacco) complicating pregnancy, third trimester; F17.200 Nicotine dependence, unspecified, uncomplicated; Z3A.40 40 weeks gestation of pregnancy
CPT/HCPCS: 59025; 81001; 87086; 87081; G0463; 99213

== ENCOUNTER 2024-04-22 06:15 | Inpatient (IN) | payer OTHER ==
[2024-04-22] MEDS ORDERED: OXYTOCIN 10 UNIT/ML 1 ML VIAL IM PRN (06:20)
[2024-04-22] MEDS ORDERED: miSOPROStoL 200 MCG TAB PO PRN (06:20)
[2024-04-22] MEDS ORDERED: LIDOCAINE 0.5% (PF) 5 MG/ML (50 ML SDV) SQ PRN (06:20)
[2024-04-22] MEDS ORDERED: TERBUTALINE 1 MG/ML VIAL SQ PRN (06:20)
[2024-04-22] MEDS ORDERED: CARBOPROST TROMETHAMINE 250 MCG/ML 1 ML AMP IM PRN (06:20)
[2024-04-22] MEDS ORDERED: TRANEXAMIC 1,000 MG/100ML-NACL 1,000 MG in EMPTY BAG 1 BAG IV PRN (06:20)
[2024-04-22] MEDS ORDERED: METHYLERGONOVINE 0.2 MG/ML 1 ML AMP IM PRN (06:20)
[2024-04-22] MEDS ORDERED: OXYTOCIN 30 UNITS/500 ML NS 30 UNIT in SALINE 1 500ML.BAG IV SCH (06:30)
[2024-04-22] MEDS: LACTATED RINGERS 1,000 ML IV SCH (06:50)
[2024-04-22 07:10] LABS: Glucose,Whole Blood 73 mg/dL (70-110)
[2024-04-22 07:11] LABS: Basophils % (A) 0 %; Eosinophils # (A) 0.2 k/uL (0-0.7); Eosinophils % (A) 2 %; HCT 33.5 % (34.0-46.0); HGB 10.5 gm/dL (11.4-16.0); Hypochromasia Slight; Lymphocytes # (A) 1.9 k/uL (1.0-4.8); Lymphocytes % (A) 26 %; MCH 26.4 pg (25.0-35.0); MCHC 31.2 g/dL (31.0-37.0); MCV 84.5 fL (80.0-100.0); Mean Platelet Volume 9.8; Monocytes # (A) 0.3 k/uL (0-1.0); Monocytes % (A) 5 %; Neutrophils # (A) 4.9 k/uL (1.3-7.7); Neutrophils % (A) 65 %; Platelet Count 168 k/uL (150-450); RBC 3.97 m/uL (3.80-5.40); WBC 7.5 k/uL (3.8-10.6)
[2024-04-22] MEDS: OXYTOCIN 30 UNITS/500 ML NS 30 UNIT in SALINE 1 500ML.BAG IV SCH (07:15)
--- NOTE | 2024-04-22 07:30 | P.HPOB ---
History of Present Illness H&P Date: 04/22/24 Chief Complaint: irregular contractions, no care Ms. Noe is a 28 year old at 40 weeks and 1 day by 38 week ultrasound who presents to labor and delivery for induction of labor for post- dates. Of note, the patient is a poor historian. The patient has not received any care during the . She presented to triage last night with cramping and was dilated to 3cm. It was determined that she was not in labor, but she was encouraged to have an induction of labor this morning for a controlled delivery. The patient did have an US on 04/08 which estimate the fetus to be average for gestational age in growth. The patient had labs drawn during a previous triage visit which were only remarkable for THC in UDS. Obstetric history: 5 full-term vaginal deliveries, most complicated by diet- controlled gestational diabetes and high blood pressure, largest baby 10#, no delivery complications. The patient states none of her babies needed nursery or NICU admission, none received IV antibiotics, and all were discharged home at the same time as her. She does not have a history of GBS positivity. work-up: gonorrhea negative, chlamydia negative, VDRL negative, HBsAg negative, rubella immune. GBS unknown. Past Medical History Past Medical History: No Reported History Additional Past Medical History / Comment(s): Obstetric history: She has had 4 previous vaginal deliveries. This is her fifth . She had care with Dr. Gomez. I did attempt to get records but there is not much in way of labs or history and this record obtained from [facility]. She does have a history of a Kidney infection with this , treated with IV antibiotics. History of Any Multi-Drug Resistant Organisms: None Reported Past Surgical History: No Surgical Hx Reported Past Anesthesia/Blood Transfusion Reactions: No Reported Reaction Past Psychological History: No Psychological Hx Reported Smoking Status: Never smoker Past Alcohol Use History: None Reported Past Drug Use History: Marijuana - Past Family History Mother Family Medical History: Hypertension Father Family Medical History: Diabetes Mellitus, Hypertension Medications and Allergies Home Medications Medication Instructions Recorded Confirmed Type No Known Home Medications 04/21/24 04/22/24 History Allergies Allergy/AdvReac Type Severity Reaction Status Date / Time No Known Allergies Allergy Verified 04/22/24 06:19 Exam Vital Signs Temp Pulse Resp BP Pulse Ox 04/22/24 06:18 96.9 F L 90 18 103/65 98 Intake and Output 04/21/24 04/22/24 04/22/24 22:59 06:59 14:59 Other: Weight 67.261 kg Focused physical exam is performed. This is a healthy-appearing in no apparent distress. Breathing is non-labored. Abdomen is gravid and non-tender. Cervical exam is 5 cm, 70 effacement, -3 station. AROM is undertaken with clear fluid noted. Extremities non-tender and non-edematous. heart tones are Category I and tocometer is graphing contractions every 2-10 minutes. Results Result Diagrams: 04/22/24 06:50 Abnormal Lab Results - Last 24 Hours (Table) 04/22/24 Range/Units 06:50 Hgb 10.5 L (11.4-16.0) gm/dL Hct 33.5 L (34.0-46.0) % RDW 16.0 H (11.5-15.5) % Assessment and Plan Assessment: 28 year old at 40 weeks and 1 day by 38 week US presenting for IOL, no care Plan: Admit, clear liquid diet, pt with UA suspicious for UTI > keflex x 7 days, GBS unknown without risk factors - no abx at this time per ACOG unless ruptured longer than 18 hours, pitocin per protocol, continuous EFM and tocometer, close monitoring of patient. Epidural prn. Anticipate vaginal delivery.
[2024-04-22] MEDS ORDERED: SODIUM CHLORIDE 0.9% 250 ML BAG ONE (07:46)
[2024-04-22] MEDS ORDERED: ROPIVACAINE 5 MG/ML 30 ML VIAL ONE (07:46)
[2024-04-22] MEDS ORDERED: fentaNYL (PF) 50 MCG/ML 5 ML AMP ONE (07:46)
[2024-04-22] MEDS ORDERED: SIMETHICONE 80 MG CHEWABLE PO PRN (09:00)
[2024-04-22] MEDS ORDERED: LANOLIN CREAM 1 GM TUBE TOPICAL PRN (09:00)
[2024-04-22] MEDS ORDERED: BENZOCAINE/MENTHOL SPRAY 1 GM/SPRAY AEROSOL TOPICAL PRN (09:00)
[2024-04-22] MEDS ORDERED: HYDROCORTISONE 2.5% RECTAL CREAM 30 GM TUBE RECTAL PRN (09:00)
[2024-04-22] MEDS ORDERED: diphenhydrAMINE 25 MG CAP PO PRN (09:00)
[2024-04-22] MEDS ORDERED: ZOLPIDEM 5 MG TAB PO PRN (09:00)
[2024-04-22] MEDS ORDERED: diphenhydrAMINE 50 MG/ML 1 ML VIAL IVP PRN ×2 (09:00)
[2024-04-22] MEDS ORDERED: diphenhydrAMINE 50 MG CAP PO PRN (09:00)
--- NOTE | 2024-04-22 09:00 | P.PROBDLV ---
Vaginal Delivery Note - . Vaginal Delivery Note: This is a 28-year-old 6 para 5 at 40-1/7 weeks that presents to labor and delivery for induction of labor secondary to postdates. Patient has not received care during this . Patient was seen in triage last evening noted to be 3 cm. Patient was offered induction of labor. Patient agreed. Patient was admitted this morning for induction of labor. Patient was admitted and induction of labor was begun, amniotomy was performed patient was n oted to be 5 cm. Patient did receive an epidural for pain control. Patient progressed quickly to complete and had a precipitous delivery of a viable female infant at 826, weight of 6 pounds 14 ounces, Apgars of 9 and 9 at 1 and 5 minutes respectively. No vaginal lacerations were appreciated. Placenta delivered spontaneously intact with a three-vessel cord being noted. All counts were noted be correct x 2 at the end of the delivery. Patient and infant tolerated delivery well and resting comfortably.
[2024-04-22] MEDS: IBUPROFEN 600 MG TAB PO SCH (11:29)
[2024-04-23] MEDS: SENNOSIDES-DOCUSATE SODIUM 1 EACH TAB PO SCH (08:53)
[2024-04-23 09:10] LABS: Anisocytosis Slight; Basophils % (A) 0 %; Eosinophils # (A) 0.1 k/uL (0-0.7); Eosinophils % (A) 2 %; HCT 31.1 % (34.0-46.0); HGB 9.6 gm/dL (11.4-16.0); Hypochromasia Slight; Lymphocytes # (A) 2.5 k/uL (1.0-4.8); Lymphocytes % (A) 32 %; MCH 26.3 pg (25.0-35.0); MCHC 30.8 g/dL (31.0-37.0); MCV 85.5 fL (80.0-100.0); Mean Platelet Volume 9.8; Monocytes # (A) 0.4 k/uL (0-1.0); Monocytes % (A) 5 %; Neutrophils # (A) 4.6 k/uL (1.3-7.7); Neutrophils % (A) 59 %; Platelet Count 148 k/uL (150-450); RBC 3.64 m/uL (3.80-5.40); RDW 16.2 % (11.5-15.5); WBC 7.7 k/uL (3.8-10.6)
[2024-04-23] MEDS: CEPHALEXIN 500 MG CAP PO SCH (09:28)
--- NOTE | 2024-04-23 12:16 | P.PNOBGVD ---
Subjective - Subjective Principal diagnosis: s/p normal vaginal delivery Interval history: Patient doing well, no acute events overnight. Lochia is minimal. Pain is well controlled with the medications. The is formula feeding and doing well at bedside. Patient denies chest pain, shortness of breath, fevers, chills, pain/swelling in the legs Patient reports: Reports appetite normal, Reports voiding normally, Reports pain well controlled, Reports ambulating normally [place]: doing well Objective - Latest Vital Signs Latest vital signs: Vital Signs Temp Pulse Resp BP Pulse Ox 04/23/24 08:20 97.9 F 72 16 94/58 100 04/23/24 00:00 98.2 F 65 16 92/53 97 04/22/24 16:00 98.3 F 88 16 98/62 Intake and Output 04/22/24 04/23/24 04/23/24 22:59 06:59 14:59 Other: # Voids 1 1 1 - Exam Extremities: Present: normal Abdomen: Present: normal appearance, soft Uterus: Present: normal, firm - Labs Labs: Abnormal Lab Results - Last 24 Hours (Table) 04/23/24 Range/Units 08:55 RBC 3.64 L (3.80-5.40) m/uL Hgb 9.6 L (11.4-16.0) gm/dL Hct 31.1 L (34.0-46.0) % MCHC 30.8 L (31.0-37.0) g/dL RDW 16.2 H (11.5-15.5) % Plt Count 148 L (150-450) k/uL Assessment and Plan Assessment: 28 year old PPD#1 s/p normal vaginal delivery after IOL for post-dates with no care Plan: course going well, patient meeting all milestones as expected. Anticipate discharge home tomorrow.
[2024-04-23] MEDS: medroxyPROGESTERone 150 MG/ML 1ML VIAL IM ONE (14:00)
[2024-04-23] MEDS: FERROUS SULFATE 325 MG TAB PO SCH (14:01)
[2024-04-23 20:47] VITALS: RESP 16
[2024-04-23] MEDS: ACETAMINOPHEN TAB 325 MG TAB PO PRN (23:04)
[2024-04-24 08:41] VITALS: BP 100/64; PULSE 68; TEMP 98.3
--- NOTE | 2024-04-24 08:47 | P.DS ---
Providers Date of admission: 04/22/24 06:15 Expected date of discharge: 04/24/24 Attending physician: Agatha Nash MD Primary care physician: Stated None Hospital Course: Ms. Noe is a 28 year old now PPD#2 s/p normal vaginal delivery after induction of labor for post-dates without care. The patient is doing well this morning and had no acute events overnight. She has no complaints this morning. She reports minimal lochia, passing flatus, voiding without difficulty, ambulating, and eating/drinking without nausea or vomiting. doing well at bedside. She denies chest pain, shortness of breathing, fevers, or chills overnight. She denies pain or swelling in the legs. restrictions are reviewed with the patient including pelvic rest for 6 weeks. The patient is encouraged to call the office if she experiences any heavy bleeding, foul-smelling discharge, breast complaints, or any if she has any other concerns. She will follow up in the office with in 6 weeks for visit. She did recieve a dose of Depo Provera for contraception and she is planning to schedule permanent contraception in the office. She will go home with Keflex for UTI, Motrin, Tylenol, Iron, and a stool softener. All questions are answered. Assessment: 28 year old now PPD#2 s/p normal vaginal delivery Patient Condition at Discharge: Good Plan - Discharge Summary Discharge Rx Participant: Yes New Discharge Prescriptions: New Cephalexin [Keflex] 500 mg PO Q6HR 1 Days #5 cap polyethylene glycoL 3350 [Miralax] 17 gm PO DAILY PRN #527 gm PRN Reason: Constipation Acetaminophen Tab [Tylenol] 650 mg PO Q6H PRN #30 tab PRN Reason: Mild Pain (Scale 1 To 3) Ferrous Sulfate [Iron (65 MG Elemental)] 325 mg PO DAILY #30 tab Ibuprofen [Motrin] 600 mg PO Q6HR PRN #30 tab PRN Reason: Mild Pain (Scale 1 To 3) Discharge Medication List Acetaminophen Tab [Tylenol] 650 mg PO Q6H PRN #30 tab 04/23/24 [Rx] Cephalexin [Keflex] 500 mg PO Q6HR 1 Days #5 cap 04/23/24 [Rx] Ferrous Sulfate [Iron (65 MG Elemental)] 325 mg PO DAILY #30 tab 04/23/24 [Rx] Ibuprofen [Motrin] 600 mg PO Q6HR PRN #30 tab 04/23/24 [Rx] polyethylene glycoL 3350 [Miralax] 17 gm PO DAILY PRN #527 gm 04/23/24 [Rx] Follow up Appointment(s)/Referral(s): Agatha Nash MD [STAFF PHYSICIAN] - 06/03/24 1:15 pm Activity/Diet/Wound Care/Special Instructions: Instructions 1. Do not begin any exercise program for 3 weeks. 2. Do not resume sexual relations for 6 weeks or longer if uncomfortable. 3. You may take tub baths or showers at any time. 4. You may use tampons if desired after 6 weeks. 5. Keep any areas repaired with stitches clean and dry. 6. If you are not nursing, wear a good fitting, supportive bra during the day and limit fluid intake for at least 1 week to prevent breast engorgement. 7. Call the office, , within the next week to make appointment for your 6 week checkup if it has not already been made. 8. Report any of the following occurrences to the doctor promptly: a. Heavy, excessive bleeding b. Chills, fever c. Burning or frequency of urination d. Pain or redness and breasts if nursing e. Increasing pain or swelling of vulva (stitches). In addition to the above instructions, the following additional should be followed: 1. No heavy lifting or straining (exercising) until after 6 week checkup. 2. Keep abdominal incision clean and dry: You may wear a dressing if more comfortable. 3. Make office appointment for 2 weeks after delivery date. Discharge Disposition: HOME SELF-CARE
== END 2024-04-24 11:00 | disposition home or self-care (01) | DRG 560 ==
LOC: 4FBP 06:15
PROVIDERS: ADMIT Obstetrics & Gynecology; ATTEND Obstetrics & Gynecology
PROC: 10907ZC Drainage of Amniotic Fluid, Therapeutic from Products of Conception, Via Natural or Artificial Opening (ICD-10-PCS; principal; 2024-04-22)
PROC: 3E033VJ Introduction of Other Hormone into Peripheral Vein, Percutaneous Approach (ICD-10-PCS; principal; 2024-04-22)
PROC: 10E0XZZ Delivery of Products of Conception, External Approach (ICD-10-PCS; principal; 2024-04-22)
DX: O48.0 Post-term pregnancy (principal); N39.0 Urinary tract infection, site not specified; O62.3 Precipitate labor; O99.324 Drug use complicating childbirth; O23.43 Unspecified infection of urinary tract in pregnancy, third trimester; F12.90 Cannabis use, unspecified, uncomplicated; Z28.310 Unvaccinated for COVID-19; Z86.32 Personal history of gestational diabetes; Z3A.40 40 weeks gestation of pregnancy; Z37.0 Single live birth
CPT/HCPCS: 85025; 86850; 86900; 86901; 88307

== ENCOUNTER 2025-04-22 12:02 | Inpatient (IN) | payer MEDICAID, OTHER ==
--- NOTE | 2025-04-22 13:20 | ED ---
Psych HPI - General Chief Complaint: Psychiatric Symptoms Stated Complaint: Mental Health Eval. Time Seen by Provider: 04/22/25 12:22 Source: patient, family, RN notes reviewed, old records reviewed, Caregiver Mode of arrival: ambulatory Limitations: no limitations - History of Present Illness Initial Comments: This is a 29-year-old female sent in by [facility] for psychiatric evaluation patient is hearing voices with depression believe she is experiencing depression, significant depression here in the ER with denying of recent drug or alcohol abuse MD Complaint: feels depressed -: days(s) Associated Psychiatric Symptoms: depression History of same: Yes Quality: constant, getting worse Improves With: none Worsens With: none Context: not taking psychiatric medications, significant life stressor Associated Symptoms: denies other symptoms Treatments Prior to Arrival: placed on mental health hold If Self Harm: admits thoughts of self harm - Related Data Home Medications Medication Instructions Recorded Confirmed No Known Home Medications 04/22/25 04/22/25 Allergies Allergy/AdvReac Type Severity Reaction Status Date / Time No Known Allergies Allergy Verified 04/22/25 15:16 Review of Systems ROS Statement: Those systems with pertinent positive or pertinent negative responses have been documented in the HPI. ROS Other: All systems not noted in ROS Statement are negative. Past Medical History Past Medical History: No Reported History Additional Past Medical History / Comment(s): Obstetric history: She has had 4 previous vaginal deliveries. This is her fifth . She had care with Dr. Gomez. I did attempt to get records but there is not much in way of labs or history and this record obtained from [facility]. She does have a history of a Kidney infection with this , treated with IV antibiotics. History of Any Multi-Drug Resistant Organisms: None Reported Past Surgical History: No Surgical Hx Reported Past Anesthesia/Blood Transfusion Reactions: No Reported Reaction Past Psychological History: No Psychological Hx Reported Smoking Status: Never smoker Past Alcohol Use History: None Reported Past Drug Use History: Marijuana - Past Family History Mother Family Medical History: Hypertension Father Family Medical History: Diabetes Mellitus, Hypertension General Exam Limitations: no limitations General appearance: alert, in no apparent distress Head exam: Present: atraumatic, normocephalic, normal inspection Eye exam: Present: normal appearance, PERRL, EOMI. Absent: scleral icterus, conjunctival injection, periorbital swelling ENT exam: Present: normal exam, mucous membranes moist Neck exam: Present: normal inspection. Absent: tenderness, meningismus, lymphadenopathy Respiratory exam: Present: normal lung sounds bilaterally. Absent: respiratory distress, wheezes, rales, rhonchi, stridor Cardiovascular Exam: Present: regular rate, normal rhythm, normal heart sounds. Absent: systolic murmur, diastolic murmur, rubs, gallop, clicks GI/Abdominal exam: Present: soft, normal bowel sounds. Absent: distended, tenderness, guarding, rebound, rigid Extremities exam: Present: normal inspection, full ROM, normal capillary refill. Absent: tenderness, pedal edema, joint swelling, calf tenderness Back exam: Present: normal inspection Neurological exam: Present: alert, oriented X3, CN II-XII intact Psychiatric exam: Present: normal affect, normal mood Skin exam: Present: warm, dry, intact, normal color. Absent: rash Course Vital Signs 04/22/25 04/22/25 12:03 14:22 Temperature 97.8 F 98.5 F Pulse Rate 65 62 Respiratory 18 18 Rate Blood Pressure 118/80 105/68 O2 Sat by Pulse 100 100 Oximetry - Reevaluation(s) Reevaluation #1: 04/22/25 18:32 Medical records reviewed Reevaluation #2: 04/22/25 18:32 Medical cleared for psychiatric evaluation Reevaluation #3: Was pt. sent in by a medical professional or institution (, PA, CAMPGROUND ATTENDANT, urgent care, hospital, or residential...) When possible be specific @ -no Did you speak to anyone other than the patient for history (EMS, parent, family, police, friend...)? What history was obtained from this source @ -no Did you review nursing and triage notes (agree or disagree)? Why? @ -agree Are old charts reviewed (outside hosp., previous admission, EMS record, old EKG, old radiological studies, urgent care reports/EKG's, residential records)? Report findings @ -yes Differential Diagnosis (chest pain, altered mental status, abdominal pain women, abdominal pain men, vaginal bleeding, weakness, fever, dyspnea, syncope, headache, dizziness, GI bleed, back pain, seizure, CVA, palpatations, mental health, musculoskeletal)? @ -prior EKG interpreted by me (3pts min.). @ -yes X-rays interpreted by me (1pt min.). @ -yes negative for acute disease CT interpreted by me (1pt min.). @ -no U/S interpreted by me (1pt. min.). @ -no What testing was considered but not performed or refused? (CT, X-rays, U/S, labs)? Why? @ -none What meds were considered but not given or refused? Why? @ -none Did you discuss the management of the patient with other professionals (professionals i.e. , PA, CAMPGROUND ATTENDANT, lab, RT, psych nurse, director social welfare, electric stop installer, teacher, animal control officer, showcase trimmer)? Give summary @ -no Was smoking cessation discussed for >3mins.? @ -no Was critical care preformed (if so, how long)? @ -no Were there social determinants of health that impacted care today? How? (Homelessness, low income, unemployed, alcoholism, drug addiction, transportation, low edu. Level, literacy, decrease access to med. care, fci, rehab)? @ -none Was there de-escalation of care discussed even if they declined (Discuss DNR or withdrawal of care, Hospice)? DNR status @ -no What co-morbidities impacted this encounter? (DM, HTN, Smoking, COPD, CAD, Cancer, CVA, ARF, Chemo, Hep., AIDS, mental health diagnosis, sleep apnea, morbid obesity)? @ -none Was patient admitted / discharged? Hospital course, mention meds given and route, prescriptions, significant lab abnormalities, going to OR and other pertinent info. @ - Undiagnosed new problem with uncertain prognosis? @ -no Drug Therapy requiring intensive monitoring for toxicity (Heparin, Nitro, Insulin, Cardizem)? @ -no Were any procedures done? @ -no Diagnosis/symptom? @ - Acute, or Chronic, or Acute on Chronic? @ -Acute Uncomplicated (without systemic symptoms) or Complicated (systemic symptoms)? @ -Complicated Side effects of treatment? @ -no Exacerbation, Progression, or Severe Exacerbation? @ -exacerbation Poses a threat to life or bodily function? How? (Chest pain, USA, NV, pneumonia, PE, COPD, DKA, ARF, appy, cholecystitis, CVA, Diverticulitis, Homicidal, Suic idal, threat to staff... and all critical care pts) @ -yes Reevaluation #4: Differential Mental Health Depression, anxiety, bipolar, psychosis, schizophrenia, borderline personality, situational depression, adjustment disorder, behavioral disorder, brain tumor, malingering, substance abuse, encephalopathy, medication reaction, dementia, hypothyroidism, degenerative neurologic disorder, lupus.... This is not meant to be all-inclusive list Medical Decision Making - Medical Decision Making 29 female seen eval by psychiatry here in the ER patient will be admitted for psychiatric evaluation and treatment - Lab Data Lab Results 04/22/25 04/22/25 Range/Units 16:55 17:02 Urine Opiates Screen Not Detected (NotDetected) Ur Oxycodone Screen Not Detected (NotDetected) Urine Methadone Screen Not Detected (NotDetected) Ur Barbiturates Screen Not Detected (NotDetected) U Tricyclic Antidepress Not Detected (NotDetected) Ur Phencyclidine Scrn Not Detected (NotDetected) Ur Amphetamines Screen Not Detected (NotDetected) U Methamphetamines Scrn Not Detected (NotDetected) U Benzodiazepines Scrn Not Detected (NotDetected) Urine Cocaine Screen Not Detected (NotDetected) U Marijuana (THC) Screen Detected H (NotDetected) SARS-CoV-2 (PCR) Not Detected (Not Detectd) Disposition Clinical Impression: Suicidal ideation, Depression, Acute anxiety, Adjustment reaction of adult life Disposition: TRANSFER TO PSYCH HOSP/UNIT Condition: Fair Is patient prescribed a controlled substance at d/c from ED?: No Referrals: None,Stated [Primary Care Provider] - 1-2 days
[2025-04-22 17:48] LABS: Amphetamine Screen,Urine Not Detected (NotDetected); Barbiturate Screen,Urine Not Detected (NotDetected); Benzodiazepines Screen,Urine Not Detected (NotDetected); Cocaine Screen,Urine Not Detected (NotDetected); Methadone Screen, Urine Not Detected (NotDetected); Opiate Screen,Urine Not Detected (NotDetected); Oxycodone Screen, Urine Not Detected (NotDetected); Phencyclidine Screen,Urine Not Detected (NotDetected); Tricyclic Antidepressant,Urine Not Detected (NotDetected); Urn Cannabinoid Scrn Detected (NotDetected)
[2025-04-22] MEDS ORDERED: IBUPROFEN 600 MG TAB PO PRN (20:02)
[2025-04-22] MEDS ORDERED: MAGNESIUM HYDROXIDE 2,400 MG/30 ML CUP PO PRN (20:02)
[2025-04-22] MEDS ORDERED: HALOPERIDOL LACTATE 5 MG/ML 1 ML VIAL IM PRN (20:02)
[2025-04-22] MEDS ORDERED: ACETAMINOPHEN TAB 325 MG TAB PO PRN (20:02)
[2025-04-22] MEDS ORDERED: LORazepam 2 MG/ML INJ IM PRN (20:02)
[2025-04-22] MEDS ORDERED: haloperidoL 5 MG TAB PO PRN (20:02)
[2025-04-22] MEDS ORDERED: MAG HYDROX/AL HYDROX/SIMETH 355 ML BOTTLE PO PRN (20:02)
[2025-04-22 20:23] LABS: Appearance,Urine Cloudy (Clear); Bacteria,Urine Rare /hpf; Bilirubin,Urine Negative (Negative); Blood,Urine Negative (Negative); Color,Urine Light Yellow; Glucose,Urine (UA) Negative (Negative); Hyaline Casts,Urine 1 /lpf (0-2); Ketones,Urine 1+ (Negative); Leukocyte Esterase,Urine Moderate (Negative); Mucus,Urine Many /hpf; Nitrite,Urine Negative (Negative); Protein,Urine Negative (Negative); RBC,Urine 3 /hpf (0-5); Specific Gravity,Urine 1.016 (1.001-1.035); Squamous Epithelial Cell,Urine 5 /hpf (0-4); WBC,Urine 14 /hpf (0-5)
[2025-04-23 08:18] LABS: Basophils # (A) 0.05 10*3/uL (0.00-0.10); Basophils % (A) 0.5 %; Eosinophils # (A) 0.12 10*3/uL (0.04-0.35); Eosinophils % (A) 1.2 %; HCT 41.3 % (37.2-46.3); HGB 13.1 g/dL (12.0-15.0); Lymphocytes # (A) 1.71 10*3/uL (0.90-5.00); Lymphocytes % (A) 17.5 %; MCH 27.2 pg (27.0-32.0); MCHC 31.7 g/dL (32.0-37.0); MCV 85.9 fL (80.0-97.0); Mean Platelet Volume 10.5 fL (9.5-12.2); Monocytes # (A) 0.47 10*3/uL (0.20-1.00); Monocytes % (A) 4.8 %; Neutrophils # (A) 7.37 10*3/uL (1.80-7.70); Neutrophils % (A) 75.6 %; Platelet Count 205 10*3/uL (140-440); RBC 4.81 10*6/uL (4.10-5.20); RDW 13.9 % (11.5-14.5); WBC 9.76 10*3/uL (4.50-10.00)
[2025-04-23 08:34] LABS: Chloride 104 mmol/L (98-107)
[2025-04-23 08:39] LABS: ALT 17 U/L (4-34); AST 18 U/L (14-36); African American GFR (CKD) >90 (>60 ml/min/1.73 sqM); Albumin 4.2 g/dL (3.5-5.0); Alkaline Phosphatase 53 U/L (38-126); Anion Gap 6 mmol/L; Blood Urea Nitrogen 6 mg/dL (7-17); Calcium 9.4 mg/dL (8.4-10.2); Carbon Dioxide 28 mmol/L (22-30); Glucose 87 mg/dL (74-99); Non-African American GFR(CKD) >90 (>60 ml/min/1.73 sqM); Potassium 3.9 mmol/L (3.5-5.1); Sodium 138 mmol/L (137-145); Total Bilirubin 1.2 mg/dL (0.2-1.3); Total Protein 6.7 g/dL (6.3-8.2)
[2025-04-23] MEDS: NICOTINE 14MG/24HR PATCH TRANSDERM SCH (10:19)
[2025-04-23] MEDS: SERTRALINE 25 MG TAB PO SCH (13:02)
[2025-04-23] MEDS: lamoTRIgine 25 MG TAB PO SCH (13:02)
--- NOTE | 2025-04-23 14:27 | P.HP ---
Psychiatric H&P - . H&P Date: 04/23/25 History & Physical: Allergies Allergy/AdvReac Type Severity Reaction Status Date / Time No Known Allergies Allergy Verified 04/22/25 15:16 Vital Signs Temp 98.5 F 04/23/25 10:37 Pulse 89 04/23/25 10:37 Resp 14 04/23/25 10:37 BP 115/69 04/23/25 10:37 Pulse Ox 100 04/23/25 10:37 FiO2 Intake & Output 04/22/25 04/23/25 04/23/25 18:59 06:59 18:59 Weight 54.431 kg 46.3 kg Laboratory Last Values WBC 9.76 10*3/uL (4.50-10.00) 04/23/25 07:52 RBC 4.81 10*6/uL (4.10-5.20) 04/23/25 07:52 Hgb 13.1 g/dL (12.0-15.0) 04/23/25 07:52 Hct 41.3 % (37.2-46.3) 04/23/25 07:52 MCV 85.9 fL (80.0-97.0) 04/23/25 07:52 MCH 27.2 pg (27.0-32.0) 04/23/25 07:52 MCHC 31.7 g/dL (32.0-37.0) L 04/23/25 07:52 Plt Count 205 10*3/uL (140-440) 04/23/25 07:52 MPV 10.5 fL (9.5-12.2) 04/23/25 07:52 Immature Gran % (Auto) 0.4 % 04/23/25 07:52 Neutrophils % 75.6 % 04/23/25 07:52 Lymphocytes % 17.5 % 04/23/25 07:52 Monocytes % 4.8 % 04/23/25 07:52 Eosinophils % 1.2 % 04/23/25 07:52 Basophils % 0.5 % 04/23/25 07:52 Immature Gran # 0.04 10*3/uL (0.00-0.04) 04/23/25 07:52 Neutrophils # 7.37 10*3/uL (1.80-7.70) 04/23/25 07:52 Lymphocytes # 1.71 10*3/uL (0.90-5.00) 04/23/25 07:52 Monocytes # 0.47 10*3/uL (0.20-1.00) 04/23/25 07:52 Eosinophils # 0.12 10*3/uL (0.04-0.35) 04/23/25 07:52 Basophils # 0.05 10*3/uL (0.00-0.10) 04/23/25 07:52 Sodium 138 mmol/L (137-145) 04/23/25 07:52 Potassium 3.9 mmol/L (3.5-5.1) 04/23/25 07:52 Chloride 104 mmol/L (98-107) 04/23/25 07:52 Carbon Dioxide 28 mmol/L (22-30) 04/23/25 07:52 Anion Gap 6 mmol/L 04/23/25 07:52 BUN 6 mg/dL (7-17) L 04/23/25 07:52 Creatinine 0.78 mg/dL (0.52-1.04) 04/23/25 07:52 Est GFR (CKD-EPI)AfAm >90 (>60 ml/min/1.73 sqM) 04/23/25 07:52 Est GFR (CKD-EPI)NonAf >90 (>60 ml/min/1.73 sqM) 04/23/25 07:52 Glucose 87 mg/dL (74-99) 04/23/25 07:[address] Glu mg/dL 103 mg/dL 04/23/25 07:52 Hemoglobin A1c 5.2 % (<=6.0) 04/23/25 07:52 Calcium 9.4 mg/dL (8.4-10.2) 04/23/25 07:52 Total Bilirubin 1.2 mg/dL (0.2-1.3) 04/23/25 07:52 AST 18 U/L (14-36) 04/23/25 07:52 ALT 17 U/L (4-34) 04/23/25 07:52 Alkaline Phosphatase 53 U/L (38-126) 04/23/25 07:52 Total Protein 6.7 g/dL (6.3-8.2) 04/23/25 07:52 Albumin 4.2 g/dL (3.5-5.0) 04/23/25 07:52 TSH 1.080 mIU/L (0.465-4.680) 04/23/25 07:52 Urine Color Light Yellow 04/22/25 17:02 Urine Appearance Cloudy (Clear) H 04/22/25 17:02 Urine pH 7.0 (5.0-8.0) 04/22/25 17:02 Ur Specific [place] 1.016 (1.001-1.035) 04/22/25 17:02 Urine Protein Negative (Negative) 04/22/25 17:02 Urine Glucose (UA) Negative (Negative) 04/22/25 17:02 Urine Ketones 1+ (Negative) H 04/22/25 17:02 Urine Blood Negative (Negative) 04/22/25 17:02 Urine Nitrite Negative (Negative) 04/22/25 17:02 Urine Bilirubin Negative (Negative) 04/22/25 17:02 Urine Urobilinogen 2.0 mg/dL (<2.0) 04/22/25 17:02 Ur Leukocyte Esterase Moderate (Negative) H 04/22/25 17:02 Urine RBC 3 /hpf (0-5) 04/22/25 17:02 Urine WBC 14 /hpf (0-5) H 04/22/25 17:02 Ur Squamous Epith Cells 5 /hpf (0-4) H 04/22/25 17:02 Urine Bacteria Rare /hpf (None) H 04/22/25 17:02 Hyaline Casts 1 /lpf (0-2) 04/22/25 17:02 Urine Mucus Many /hpf (None) H 04/22/25 17:02 Urine HCG, Qual Not Detected (Not Detectd) 04/22/25 17:02 Urine Opiates Screen Not Detected (NotDetected) 04/22/25 17:02 Ur Oxycodone Screen Not Detected (NotDetected) 04/22/25 17:02 Urine Methadone Screen Not Detected (NotDetected) 04/22/25 17:02 Ur Barbiturates Screen Not Detected (NotDetected) 04/22/25 17:02 U Tricyclic Antidepress Not Detected (NotDetected) 04/22/25 17:02 Ur Phencyclidine Scrn Not Detected (NotDetected) 04/22/25 17:02 Ur Amphetamines Screen Not Detected (NotDetected) 04/22/25 17:02 U Methamphetamines Scrn Not Detected (NotDetected) 04/22/25 17:02 U Benzodiazepines Scrn Not Detected (NotDetected) 04/22/25 17:02 Urine Cocaine Screen Not Detected (NotDetected) 04/22/25 17:02 U Marijuana (THC) Screen Detected (NotDetected) H 04/22/25 17:02 SARS-CoV-2 (PCR) Not Detected (Not Detectd) 04/22/25 16:55 04/23/25 11:20 IDENTIFYING DATA: Patient is a 29-year-old -[place] female, has 6 kids, she is single, she lives alone in an apartment, unemployed HPI: Patient presented to the hospital yesterday and was evaluated by [facility] licensed social worker and as per note "Clinician met with Mariaa in ER 13 to eval. Cl sitting in bed awake A/O x4 brought in by family following [facility] meet with mobile baking factory worker Dania Oreilly. MCU reports cl has been depressed, not sleeping, having aud hallucinations, not caring for herself or children well. CPS recently involved as teachers noticed kids appearances and hygiene went down. She has some paranoia and thinks there are cameras in her apt but there are none. The bfs mom is supportive and her and the bfs sister were just given temporary co- guardianship of [facility] 6 children. She is age 29 with 6 kids by same man, oldest child is age 8 youngest child is 11months old so she is still and reports hx of depression. Passive SI but denied plan or intent. " I have my kids so I am not going to do that." Cl's mother over the phone indicated that cl has made statements about not wanting to be here. MCU reports: She tries to minimize symptoms but was crying throughout screening and often preoccupied with halting and blocking noted. Clinician observed this as well. Bfs mom is main support.Both her parents are . Cl reports aud matheus, and family reports witnessing cl respond to internal stimuli. " We both saw you at different points having full on conversation with yourself. Please tell them the truth." Cl admits to being overwhelm, distracted, having trouble focusing and balancing priorities. Cl states " I am heartbroken right now and don't want to lose my kids." CPS is involved and children are split up between two homes with temporary custody secured. Cl has poor eye contact, is guarded, hesitates when sharing, then will kivalina back and correct what was previously said. Cl also admits to fears that they are being watched. Judgement/insight/impulse control : fair ADL's: fair sleep/appetite: poor. " Patient was seen today and agreeabke to speak in the office. The patient was rambling, somewhat off topic, she was fairly vague about her symptoms that brought her to the hospital. Claims that her parents both caught COVID-19 and he claims that they both these past couple of years. Claims that she has been grieving with the loss. Claims that she was feeling more depressed endorsing anxiety. Claims that she has been having crying spells. States that her appetite has been fairly poor, has not been caring for herself at home. Claims that she is missing her children and they are staying with her sister. CPS is involved and has removed the children. She was disk weighing and poor eye contact with instructional writer, fairly poor historian and vague. Claims that her sleep has been on and off, appetite has been poor. Claims that she was hearing voices prior to coming into the hospital however not any longer. Denies any visual hallucinations. Claims that she is having on and off suicidal thoughts, no specific plan or intent. Patient denies any homicidal ideations intent or plan. Patient denies any flight of ideas racing thoughts and increased in goal directed behavior. Patient admits to using marijuana occasionally PAST PSYCHIATRIC HISTORY: Patient claims that she has noticed significant psychiatric past history. Patient denies being on any psychiatric medications. Patient denies any previous psychiatric hospitalizations. Patient denies any psychiatric outpatient follow-up. Patient denies any history of suicide attempts in the past. PMH: as per ER note ALLERGIES: as per EMR CHEMICAL DEPENDENCY HISTORY: as per HPI FAMILY PSYCHIATRIC/SUBSTANCE USE HISTORY: Denies SOCIAL HISTORY: Patient was born and raised in [place]. 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 Claims that she has 6 kids she is single she lives alone in an apartment, she is unemployed at this time. Denies any legal history. MENTAL STATUS EXAM: General Appearance: Patient appears to be thin, stated age is alert, somewhat guarded and evasive. Patient appears to have poor hygiene and grooming. Behavior: Patient is seated without any agitated behavior. Guarded and vague Speech: Patient's speech is fluent and nonpressured. Rambling at times Mood/Affect: Patient reports their mood is depressed and also anxious, affect is congruent and constricted. Suicidality/Homicidality: Patient denies having any homicidal ideation intent or plan. Admits to suicidal thoughts, no intent or plan. Perceptions: Patient denies any visual hallucinations and denies any auditory hallucinations Though content/process: There is no evidence of any delusional thought content and thought process is linear. Rambling at times, tangential Memory and concentration: AOX3, grossly intact for the purposes of this session. Can spell "WORLD" backwards Judgment and insight: Poor STRENGTHS/WEAKNESSES: strength is that patient is resilient. Weakness is that alison alonso has poor judgment and is impulsive INTELLECT: Average IMPRESSIONS: Depressive disorder unspecified Anxiety disorder unspecified Cannabis use disorder PLAN: -Patient is admitted under voluntary status to MHU for stabilization of psychiatric symptoms and safety. Patient has signed adult voluntary form and has signed medication consent and is placed in patient's chart. -Medications : Lamictal 25 mg daily for mood stabilization/depression, Zoloft 25 mg daily for mood/anxiety. Melatonin 6 mg nightly for sleep -Ativan and Haldol PRN for agitation/aggression -Patient was counselled on substance abuse and desired to cut back on use. Patient states they do not want rehab and wish to cut back subtance use on their own -Patient was informed of the risks, benefits and side effects of the medications and patient verbally consented to taking the medications. Patient signed med consent form and was placed in chart. Patient was offered medication information and accepted it -Internal Medicine consult to perform medical evaluation and physical. -NRT -not needed as patient does not smoke -SW on board for discharge planning. Encourage patient to participate in groups to work on coping skills. 04/23/25 14:21 04/23/25 14:26
[2025-04-23 14:53] VITALS: BMI 17.5
[2025-04-23 15:52] LABS: Chol/HDL Ratio 2.33 Ratio; LDL Cholesterol,Calculated 78.5 mg/dL (0.0-131.0); VLDL Calculation 13.36 mg/dL (5.00-40.00)
[2025-04-23] MEDS: MELATONIN 3 MG TABLET PO SCH (21:23)
--- NOTE | 2025-04-24 11:51 | P.PN ---
Progress Note - Text Progress Note Date: 04/24/25 Interval History: Patient was seen today for psychiatric follow up. she appears to have improvem ent in her affect today and was more directable today. her eye contact is improving today. has been going to groups. today was her first day taking the medications. states that her sleep Last night was on and off. Was requesting had an increase in her melatonin. States that she did have on and off suicidal thoughts earlier today however that has been improving. Claims that she is just waiting for the medication to be sitting in well with her, claims that she has not experiencing a rash or any side effects at this time. Denies any issues with appetite. Insight and judgment appear to be improving mildly. Denying any auditory or visual hallucinations. Denies any homicidal ideations. MENTAL STATUS EXAM: General Appearance: Patient appears to be thin, stated age is alert. Patient appears to have improving hygiene and grooming Behavior: Patient is seated without any agitated behavior. Guarded and vague improving mildly Speech: Patient's speech is fluent and nonpressured. Mood/Affect: Patient reports their mood is depressed, improving, affect is congruent Suicidality/Homicidality: Patient denies having any homicidal ideation intent or plan. Admits to suicidal thoughts, improving, no intent or plan. Perceptions: Patient denies any visual hallucinations and denies any auditory hallucinations Though content/process: There is no evidence of any delusional thought content and thought process is linear. Rambling at times, tangential Memory and concentration: AOX3, grossly intact for the purposes of this session Judgment and insight: Poor, Improving mildly IMPRESSIONS: Depressive disorder unspecified Anxiety disorder unspecified Cannabis use disorder PLAN: -Patient is admitted under voluntary status to MHU for stabilization of psychiatric symptoms and safety. Patient has signed adult voluntary form and has signed medication consent and is placed in patient's chart. -Medications : Lamictal 25 mg daily for mood stabilization/depression, Zoloft 25 mg daily for mood/anxiety. Increase melatonin 10 mg nightly for sleep. Patient is monitoring her skin no rash at this time. -Ativan and Haldol PRN for agitation/aggression -NRT -not needed as patient does not smoke -SW on board for discharge planning. Encourage patient to participate in groups to work on coping skills. Likely discharge and 1 to 3 days if patient is improving.
--- NOTE | 2025-04-24 20:43 | P.HPIM ---
History of Present Illness H&P Date: 04/24/25 Chief Complaint: psych evaluation 29-year-old female patient with no significant past medical history who is admitted to the psych unit for evaluation of psychosis.Patient is hearing voices with depression believe she is experiencing depression Past medical history : none Past surgical history :She has had 4 previous vaginal deliveries. She recently had a baby and this is her fifth . She does have a history of a Kidney infection with this , treated with IV antibiotics Social history : No tobacco use, no alcohol use. Daily marijuana use Review of system : Negative except what mentioned in HPI Physical exam : General: nontoxic, no distress, appears at stated age Derm: warm, dry, intact Head: atraumatic, normocephalic, symmetric Eyes: EOMI, anicteric sclera Mouth: no lip lesion, mucus membranes moist Cardiovascular: S1 S2 reg, no murmur, rubs, or gallops Lungs: CTA bilateral, no rales, no accessory muscle use Abdominal: soft, non-tender to palpataion, no appreciable organomegaly Extremities: no gross muscle atrophy, no edema, no contractures Neuro: Alert, Oriented, CNII-XII grossly intact, gait normal Psych: well appearing, appropriate affect II: Pupils equal and reactive, no RAPD, normal visual field and fundus III, IV, : EOM intact, no gaze preference or deviation V: normal VII: no facial asymmetry VIII: normal hearing to speech Assessment and plan : - Depression disorder with psychosis/cannabis use/anxiety disorder : Managed by psychiatry CODE STATUS is full code Time spent : 35 min Past Medical History Past Medical History: No Reported History Additional Past Medical History / Comment(s): Obstetric history: She has had 4 previous vaginal deliveries. This is her fifth . She had care with Dr. Gomez. I did attempt to get records but there is not much in way of labs or history and this record obtained from [facility]. She does have a history of a Kidney infection with this , treated with IV antibiotics. History of Any Multi-Drug Resistant Organisms: None Reported Past Surgical History: No Surgical Hx Reported Past Anesthesia/Blood Transfusion Reactions: No Reported Reaction Smoking Status: Current every day smoker, Vaper - Past Family History Mother Family Medical History: Hypertension Father Family Medical History: Diabetes Mellitus, Hypertension Medications and Allergies Home Medications Medication Instructions Recorded Confirmed Type No Known Home Medications 04/22/25 04/22/25 History Allergies Allergy/AdvReac Type Severity Reaction Status Date / Time No Known Allergies Allergy Verified 04/22/25 15:16 Physical Exam Vitals: Vital Signs Temp Pulse Resp BP Pulse Ox 04/24/25 09:00 98.2 F 122 H 16 93/89 97 04/23/25 22:16 98.5 F 86 18 104/73 99 Results CBC & Chem 7: 04/23/25 07:52 04/23/25 07:52 Thrombosis Risk Factor Assmnt - Choose All That Apply Any of the Below Risk Factors Present?: No Other Risk Factors: No Other congenital or acquired thrombophilia - If yes, enter type in comment: No Thrombosis Risk Factor Assessment Level: Very Low Risk
[2025-04-24] MEDS: MELATONIN 5 MG TABLET PO SCH (22:08)
[2025-04-25] MEDS: LORazepam 1 MG TAB PO PRN (19:21)
--- NOTE | 2025-04-25 20:06 | P.PN ---
Progress Note - Text Progress Note Date: 04/25/25 Interval History: Patient was seen today in cross-coverage for Dr. Gomez. She reports she is doing a bit better today, but mood is still "up and down", still a bit depressed, she misses her family. She has been compliant with medications, denies side effects. Somewhat guarded, asks how long she will be here, wants to go home and see her family. She denies SI/HI. She denies auditory or visual hallucinations. MENTAL STATUS EXAM: General Appearance: Patient appears to be slender adult female, dressed in casual attire, fair hygiene Behavior: Patient is calm without any agitated behavior. Speech: Patient's speech is fluent and nonpressured. Mood/Affect: Patient reports their mood is up and down, improving, affect is congruent Suicidality/Homicidality: Patient denies having any homicidal/suicidal, ideation intent or plan. Perceptions: Patient denies any visual hallucinations and denies any auditory hallucinations Though content/process: There is no evidence of any delusional thought content and thought process is linear. Memory and concentration: AOX3, grossly intact for the purposes of this session Judgment and insight: Poor, Improving mildly IMPRESSIONS: Depressive disorder unspecified Anxiety disorder unspecified Cannabis use disorder PLAN: -Patient is admitted under voluntary status to MHU for stabilization of psychiatric symptoms and safety. Patient has signed adult voluntary form and has signed medication consent and is placed in patient's chart. -Medications: Continue Lamictal 25 mg daily for mood stabilization. Patient is monitoring her skin no rash at this time. Increase Zoloft to 50 mg daily for mood/anxiety starting Monday AM. Continue melatonin 10 mg nightly for sleep. -Ativan and Haldol PRN for agitation/aggression -NRT - not needed as patient does not smoke -SW on board for discharge planning. Encourage patient to participate in groups to work on coping skills. Likely discharge in 1 to 3 days if patient is improving.
[2025-04-26] MEDS: SERTRALINE 50 MG TAB PO SCH (09:20)
--- NOTE | 2025-04-26 12:38 | P.PN ---
Subjective Progress Note Date: 04/26/25 Principal diagnosis: Depressive disorder rule out bipolar 2 Interval History: Patient was seen today in her room and she did get up and come and talk to me. She acknowledges a history of depression for a long Time without taking meds. She is tolerating current medicines which are Zoloft 50 and Lamictal. She says she does have fluctuant moods denies any manic episodes but there are times where she feels fairly good and other times where she is depressed and she has a lot of anxiety. MENTAL STATUS EXAM: Poor eye contact slow-moving sad affect with tearful General Appearance: Patient appears to be slender adult female, dressed in casual attire, fair hygiene Behavior: Patient is calm without any agitated behavior. Speech: Patient's speech is fluent and nonpressured. Mood/Affect: Patient reports their mood is up and down, improving, affect is congruent Suicidality/Homicidality: Patient denies having any homicidal/suicidal, ideation intent or plan. Perceptions: Patient denies any visual hallucinations and denies any auditory hallucinations Though content/process: There is no evidence of any delusional thought content and thought process is linear. Memory and concentration: AOX3, grossly intact for the purposes of this session Judgment and insight: Poor, Improving mildly IMPRESSIONS: Depressive disorder unspecified rule out bipolar 2 Anxiety disorder unspecified Cannabis use disorder PLAN: -Patient is admitted under voluntary status to MHU for stabilization of psychiatric symptoms and safety. Patient has signed adult voluntary form and has signed medication consent and is placed in patient's chart. -Medications: Continue Lamictal 25 mg daily for mood stabilization. Patient is monitoring her skin no rash at this time. We discussed the fact that Lamictal is not likely to help until she has 100 mg and I will be at least 3 weeks from now. However she is clear that she has up-and-down moods and Lamictal is very good for Increase Zoloft to 50 mg daily for anxiety starting Monday AM. We will have to watch for the possibility of this causing jono but the patient Continue melatonin 10 mg nightly for sleep. -Ativan and Haldol PRN for agitation/aggression -NRT - not needed as patient does not smoke -SW on board for discharge planning. Encourage patient to participate in groups to work on coping skills. Likely discharge in 1 to 3 days if patient is improving. Objective - Vital Signs Vital signs: Vital Signs Temp 93.6 F L 04/25/25 21:00 Pulse 114 H 04/26/25 09:19 Resp 16 04/26/25 09:19 BP 96/62 04/26/25 09:19 Pulse Ox 98 04/26/25 09:19 FiO2 - Labs CBC & Chem 7: 04/23/25 07:52 04/23/25 07:52
--- NOTE | 2025-04-27 08:00 | P.PN ---
Subjective Progress Note Date: 04/27/25 Principal diagnosis: Depressive disorder rule out bipolar 2 Interval History: Patient was seen today in her room and she did get up and come and talk to me. She acknowledges a history of fluctuating depression for a long time without taking meds. She is tolerating current medicines which are Zoloft 50 and Lamictal. She says she does have fluctuant moods denies any manic episodes but there are times where she feels fairly good and other times where she is depressed and she has a lot of anxiety. MENTAL STATUS EXAM: She has better eye contact today General Appearance: Patient appears to be slender adult female, dressed in casual attire, fair hygiene Behavior: Patient is calm without any agitated behavior. Speech: Patient's speech is fluent and nonpressured. Mood/Affect: Patient reports their mood is up and down, improving, affect is congruent she smiled and seems a little less depressed Suicidality/Homicidality: Patient denies having any homicidal/suicidal, ideation intent or plan. Perceptions: Patient denies any visual hallucinations and denies any auditory hallucinations Though content/process: There is no evidence of any delusional thought content and thought process is linear. Memory and concentration: AOX3, grossly intact for the purposes of this session Judgment and insight: Poor, Improving mildly IMPRESSIONS: I think that the Lamictal probably the most important medicine she is on but it will not kick in for another 3 weeks or so and she does struggle with some anxiety and is tolerating the Zoloft without any agitation. Depressive disorder unspecified rule out bipolar 2 Anxiety disorder unspecified Cannabis use disorder PLAN: -Patient is admitted under voluntary status to MHU for stabilization of psychiatric symptoms and safety. Patient has signed adult voluntary form and has signed medication consent and is placed in patient's chart. -Medications: Continue Lamictal 25 mg daily for mood stabilization. Patient is monitoring her skin no rash at this time. We discussed the fact that Lamictal is not likely to help until she has 100 mg and that will be at least 3 weeks from now. However she is clear that she has up-and-down moods and Lamictal is very good for that. Increase Zoloft to 50 mg daily for anxiety starting Monday AM. We will have to watch for the possibility of this causing jono but the patient Continue melatonin 10 mg nightly for sleep. -Ativan and Haldol PRN for agitation/aggression -NRT - not needed as patient does not smoke -SW on board for discharge planning. Encourage patient to participate in groups to work on coping skills. Likely discharge in 1 to 3 days if patient is improving. Objective - Vital Signs Vital signs: Vital Signs Temp 97.8 F 04/26/25 21:00 Pulse 102 H 04/26/25 21:00 Resp 16 04/26/25 09:19 BP 102/67 04/26/25 21:00 Pulse Ox 100 04/26/25 21:00 FiO2 - Labs CBC & Chem 7: 04/23/25 07:52 04/23/25 07:52
[2025-04-27 09:35] LABS: Appearance,Urine Cloudy (Clear); Bacteria,Urine Many /hpf; Bilirubin,Urine Negative (Negative); Blood,Urine Negative (Negative); Color,Urine Light Yellow; Glucose,Urine (UA) Negative (Negative); Ketones,Urine Negative (Negative); Leukocyte Esterase,Urine Large (Negative); Mucus,Urine Few /hpf; Nitrite,Urine Positive (Negative); PH, Urine 6.5 (5.0-8.0); Protein,Urine Negative (Negative); RBC,Urine 1 /hpf (0-5); Specific Gravity,Urine 1.016 (1.001-1.035); Squamous Epithelial Cell,Urine 3 /hpf (0-4); Urobilinogen,Urine <2.0 mg/dL (<2.0); WBC,Urine 13 /hpf (0-5)
--- NOTE | 2025-04-27 11:55 | P.PN ---
Subjective Progress Note Date: 04/27/25 I was asked to evaluate this patient per patient's request due to concern for kidney infection, back pain. The patient was seen and examined at bedside, she did not appear to be in acute distress. She is afebrile, has been tachycardic throughout the admission and 100s. Her blood pressure is 117/82. Her pain is mild to moderate, worse with movement. There is a left-sided flank tenderness. Requested UA which came back positive for pyuria, bacteriuria, leukocyte esterase large, positive nitrite. STAT urine cultures requested, patient will be started on Bactrim 800/116 twice daily for at least 7 days for uncomplicated pyelonephritis, follow-up on urine cultures. Objective - Vital Signs Vital signs: Vital Signs Temp 98.7 F 04/27/25 08:37 Pulse 118 H 04/27/25 08:37 Resp 16 04/27/25 08:37 BP 117/82 04/27/25 08:37 Pulse Ox 98 04/27/25 08:37 FiO2 - Labs CBC & Chem 7: 04/23/25 07:52 04/23/25 07:52 Labs: Abnormal Lab Results - Last 24 Hours (Table) 04/27/25 Range/Units 09:07 Urine Appearance Cloudy H (Clear) Urine Nitrite Positive H (Negative) Ur Leukocyte Esterase Large H (Negative) Urine WBC 13 H (0-5) /hpf Urine Bacteria Many H (None) /hpf Urine Mucus Few H (None) /hpf
[2025-04-27] MEDS: SULFAMETHOX-TMP 800-160MG 1 EACH TAB PO SCH (12:14)
--- NOTE | 2025-04-28 13:10 | P.PN ---
Progress Note - Text Progress Note Date: 04/28/25 Chief complaint: "Depression" Interval History: Patient was seen wandering the hallways and was directable and agreeable to speak with narrative writer in the office. The patient notes that she is doing okay. However, it is noted that when she responded to questions there was a significant lag in response. She denied any suicidal or homicidal ideations during the interview. She notes that she is not depressed or anxious with the exceptions of wanting to get home. She notes with the medication she feels calmer. She notes that she is attending group. We did a group phone call with Carmelina at [phone]. She notes that she spoke to the patient the other night and notes that she was "a little weepy". Otherwise she feels that the patient is safe to return home. She notes that her children will remain with her and her sister. She confirmed that there were no firearms in the house. P atient notes that her energy and concentration are good. She notes that her sleep and appetite are waxing and waning. She did note that she had a safety plan of 911 or [phone] if she felt that she was in trouble. Mental Status Exam: General Appearance: Patient appears to be stated age is alert, directable, and cooperative. Patient had a blanket wrapped around her. Behavior: Patient is calmly seated without any agitated behavior. Patient presented somewhat withdrawn Speech: Patient's speech is fluent and nonpressured. Mood/Affect: Mood is improving mildly, affect is congruent and constricted. Suicidality/Homicidality: Patient denies having any suicidal or homicidal ideation intent or plan. Perceptions: Patient denies any visual hallucinations and denies any auditory hallucinations Though content/process: There is no evidence of any delusional thought content and thought process is linear and goal-directed. Memory and concentration: AOX3, grossly intact for the purposes of this session Judgment and insight: Improving mildly Diagnosis: Unspecified depressive disorder Unspecified anxiety disorder Cannabis use disorder Assessment: Patient initially presented somewhat withdrawn and to herself however after finding the possibility of returning home became quite engaged. It is felt that this time will complete stabilization and possible discharge tomorrow. Plan: -Patient continues to meet criteria for inpatient psychiatric admission for symptom stabilization and safety. Patient has signed adult voluntary form and medication consent and was placed in patient's chart. -Medications: Continue Sertraline 50 mg take 1 tablet by mouth once daily for depression/anxiety Lamotrigine 25 mg take 1 tablet by mouth once daily for mood -When necessary Ativan and Haldol for agitation/aggression. -NRT -nicotine patch -SW on board for discharge planning. Encouraged the patient to participate in milieu.
--- NOTE | 2025-04-29 07:59 | P.DS ---
Providers Date of admission: 04/22/25 19:47 Expected date of discharge: 04/29/25 Attending physician: Rahul Gomez MD Consults: 04/22/25 20:02 Consult Physician Routine Consulting Provider: Mike Reich Consult Reason/Comments: H&P and medical Do you want consulting provider notified?: Yes Primary care physician: Stated None - Discharge Diagnosis(es) (1) Acute anxiety Current Visit: Yes Status: Acute Priority: Low (2) Depression Current Visit: Yes Status: Chronic Priority: Medium (3) Suicidal ideation Current Visit: Yes Status: Resolved Priority: Low Patient Condition at Discharge: Fair Plan - Discharge Summary Discharge Rx Participant: No New Discharge Prescriptions: No Action No Known Home Medications Discharge Medication List No Known Home Medications 04/22/25 [History] Follow up Appointment(s)/Referral(s): [place] [facility], Med [Other] - 1 Week Patient Instructions/Handouts: Depression (DC), Anxiety (ED) Activity/Diet/Wound Care/Special Instructions: Avoid the use of street drugs and alcohol. Take all medications as prescribed. When you are in need of refills on your medications, please contact your medical provider and/or outpatient psychiatrist/provider to have this done. Please go to your scheduled outpatient appointment for aftercare treatment. If symptoms return or become worse, call the crisis line at and/or go to the nearest emergency room for evaluation. National Suicide Hotline [address] [facility] confidentiality statement: "The information contained in this communication, including attachments, is confidential, may be privileged, and is intended only for the use of the named recipient(s). Unauthorized use, disclosure, forwarding or copying is strictly prohibited and may be unlawful. If you have received this communication in error, please notify me IMMEDIATELY at the phone number or pager listed above.
[2025-04-29 09:55] VITALS: BP 123/74; PULSE 107; RESP 16; TEMP 97.4
== END 2025-04-29 12:30 | disposition home or self-care (01) | DRG 751 ==
LOC: EC 12:02 → 3MHU 19:47
PROVIDERS: ADMIT Psychiatry & Neurology Psychiatry; ATTEND Psychiatry & Neurology Psychiatry
DX: F32.A Depression, unspecified (principal); F17.290 Nicotine dependence, other tobacco product, uncomplicated; F22 Delusional disorders; F43.22 Adjustment disorder with anxiety; R45.851 Suicidal ideations; O99.345 Other mental disorders complicating the puerperium; R45.1 Restlessness and agitation; Z60.2 Problems related to living alone; G47.00 Insomnia, unspecified; Z79.899 Other long term (current) drug therapy; Z28.310 Unvaccinated for COVID-19; Z56.0 Unemployment, unspecified; Z11.52 Encounter for screening for COVID-19; Z28.21 Immunization not carried out because of patient refusal; Z63.4 Disappearance and death of family member; Z71.51 Drug abuse counseling and surveillance of drug abuser
CPT/HCPCS: 80053; 80061; 80306; 81001; 81025; 82075; 83036; 84443; 85025; 87077; 87086; 87186; 87635; 99285